=== PATIENT | female | born 1965 | race Caucasian/White ===

== ENCOUNTER 2017-03-20 10:00 | Day surgery (SDC) | payer MEDICAID, SELFPAY ==
[2017-03-18 17:40] LABS: Hematocrit 36.2 % (37-47); Hemoglobin 11.6 g/dl (12.0-15.0); Mean Corpuscular Hgb 28.6 pg (27.0-32.0); Mean Corpuscular Volume 89.2 fL (81-99); Mean Platelet Vol. 9.9 fl (6.2-12.0); Platelet Count 290 K/mm3 (150-450); RBC Distribution Width CV 13.4 % (11.6-14.6); RBC Distribution Width SD 43.3 fl (35.1-43.9); Red Blood Count 4.06 M/mm3 (4.2-5.4); White Blood Count 7.6 K/mm3 (4.4-11.0)
[2017-03-18 17:43] LABS: Scan Indicated on CBC? Y/N NO
[2017-03-20] VITALS (22 sets, daily range): BP systolic 102–134; BP diastolic 50–95; PULSE 18–107; RESP 12–21; TEMP 36.1–37.3; O2SAT 88–100; BMI 23.3
[2017-03-20 10:17] LABS: Internal QC Validated? YES +Cl - CLEAR BKGD; Pregnancy, Urine Negative Negative
--- NOTE | 2017-03-20 11:20 | EMB_PTH ---
PATIENT: NAYANA LOREDO [place] [facility] [place][id number] AGE/SX: 51/F ROOM: RE03/20/[address]: Dr. Nereida Jones, MDDOB: 1965 BED: DIS: 03/20/2017 SPEC #: [id number] RECD: 03/21/17 09:23 STATUS: CARI VICKY #: [id number] BAUDILIO: 03/20/17 11:[address]: Nereida Jones DEPT: SURGICAL PATHOLOGY RECD BY: Kwabena Hugo ENTERED: 03/21/17 11:13 SP TYPE: ENDOM BX/C EDIN DR: Dr. Jose G Em, DO Tissues: Endometrium, NOS Procedures: Surgery Specimen Level IV HEADER OPERATION: Hysteroscopy, D & C, Jimmy Clear PRE-OP DIAGNOSIS: Endometrial fluid and endometrial polyp TISSUE SUBMITTED: Endometrial curettings MICROSCOPIC DIAGNOSIS Endometrium, curettings: Proliferative endometrium. Mild chronic endometritis. Strips of benign superficial endocervix and ectocervix. AM:carl 03/24/17 MICROSCOPIC DESCRIPTION Slides are reviewed. GROSS DESCRIPTION Received in fixative is one container labeled with the patient's name and designated endometrial curettings. The specimen consists of multiple fragments of day mucoid soft tissue mixed with hemorrhagic soft tissue that in aggregate measure 3 x 0.5 x 0.3 cm. The entire specimen is submitted in one cassette. / SJ:carl 03/21/17 TC:3 CPT: 38141
--- NOTE | 2017-03-20 12:00 | OP.PCM_ITS ---
Operative Report Date of Procedure: 03/20/17 Surgeon: Dr. Nereida Cabrera-Patel Consulting Solution Director: Loree DORSEY student Pre op Diagnosis: Endometrial Fluid, Endometrial Polyp Post OP Diagnosis: Stenotic Cervix, Endocervical fluid, Possible EM polyp Surgery Performed: Hysteroscopy, D&C using TRUCLEAR Findings: Uterus retroverted, sounded to approximately 7cm. The cervical os was stenotic- as soon as it was perforated large amt of clear gel like fluid was expelled. No definitve polyp noted. EMC obtained used true clear Complications: none EBL: 5cc Fluids: 800cc LR Fluid Decifit: 40 cc Anesthesia: general with LMA IMplanatable devices: none Operative Note: After informed consent was obtained patient was taken to OR and placed in supine position. Anesthesia was given. patient was placed in yellow fin stirrups she was prepped and draped in normal sterile fashion. bladder was drained with straight catheter with approximately 40cc of clear yellow urine expelled. Exam under anesthesia reviewed normal sized uterus with no adnexal masses. Weighted speculum placed in posterior fornix of vaginal, single tooth tenaculum was used to gently grasped anterior lip of cervix. cervix noted to be stenotic- small dilator used to perforate cervical os- at this time large amout of clear gel like fluid was expelled. Uterus was sounded to 7cm. Cervix was then gently dilated in an incremental fashion. Was adequate dilation was achieved the hysteroscope was inserted using Normal saline as the distention medium. Upon hysteroscopy there were no gross abnormalities, no definitive polypoid tissue noted. At this time the incisor truclear blade was opened and used for the Endometrial curetting sample. The tissue was then sent to pathology for examination. Uterine cavity intact, no complications. At this time procedure was deemed complete and successful. Tenaculum removed, speculum removed. Good hemostasis appreciated. Vaginal sweep was negative. Instrument and lap count correct x 2. I anticipate normal postoperative course.
--- NOTE | 2017-03-20 12:00 | PCM.DC.D&C ---
Discharge Diet: No Restrictions Discharge Activity: Return to Normal Activity, May Shower, May Take a Tub Bath - in 2 weeks. Allergies/Adverse Reactions: Allergies latex Allergy (Verified 03/13/17 15:26) Rash Penicillins Allergy (Verified 03/13/17 15:26) Rash codeine Adverse Reaction (Verified 03/13/17 15:26) Rash Medications to take at Discharge Cyclobenzaprine [Flexeril] 5 mg PO BID PRN 03/10/17 Fluoxetine HCl [Fluoxetine HCl] 40 mg PO DAILY 03/10/17 Fluoxetine [Prozac] 20 mg PO DAILY 03/10/17 Levothyroxine [Synthroid] 100 mcg PO DAILY 03/10/17 Albuterol IH (ProAir) [Proair Hfa (SP)Vent Pts] 1 - 2 puff INHALATION Q4H PRN PRN 03/13/17 Albuterol Inhaler [Ventolin Hfa (SP)] 1 - 2 puff INHALATION Q4H PRN PRN 03/13/17 Fluoxetine [Prozac] 10 mg PO DAILY 03/13/17 Primary Care Physician: Jose G Em DO [Primary Care Provider] - Please Follow Up With: Nereida Jones MD When: 2 weeks as scheduled for post op visit
[2017-03-20] MEDS: Ipratropium/Albuterol Sulfate 3 ML AMPUL.NEB INHALATION (12:22)
--- NOTE | 2017-03-20 12:36 | SUR.PHASEI ---
Addendum entered by Shanda Javed 03/20/17 14:42: PT OFF FLOOR FOR CXR Original Note: Addendum entered by Shanda Javed 03/20/17 14:36: PT'S UPDATED ON PTS STATUS. DURING CONVERSATION WITH PT HER NOTED 1 1/2 AGO SHE WAS TX FOR WALKING PNEUMONIA. PT COMPLETED HER DOSE OF ANTIBIOTICS AND PREDNISONE YESTERDAY. Original Note: UPON ARRIVAL AT 1207 ANESTHESIA AT BEDSIDE Primitivo ROJAS CRNA. ORAL AIRWAY IN. THEN REMOVED AT 1210. PT BEING GIVEN O2 PER PER AMBU BAG. NARCAN X2 DOSES GIVEN AT 1210 & 1215.ALL DONE PER Primitivo MILLER CALLED TO BE AT BESIDE AT 1214. PT BEING DEEP SUCTIONIONED AT 1216 AND ORAL AIRWAY BEING REPLACED PER HIM. ORAL AIRWAY REMOVED PER RESP AT 1225. RESP BEDSIDE AND STARTED BIPAP AT 1232.
--- NOTE | 2017-03-20 14:40 | RAD_ITS ---
STUDY: X-RAY CHEST REASON FOR EXAM: Female, 51 years old. Cough. Shortness of breath. TECHNIQUE: AP and lateral views of the chest. COMPARISON: None. FINDINGS: Focal right middle lobe infiltrate. There is no demonstrated pleural abnormality. Normal size heart. Normal mediastinum and john. Normal visualized pulmonary arteries. Normal visualized aortic arch and descending thoracic aorta. Normal visualized thoracic spine. Normal visualized ribs, clavicles, and shoulders. There is no demonstrated abnormality of the visualized soft tissue structures of the upper abdomen. RAD/Chest PA and Lateral IMPRESSION: Right middle lobe infiltrate. Electronically Signed: Casey Tucker MD at 15:15 EST Tel [phone], Service support ,
== END 2017-03-20 17:00 | disposition home or self-care (01) ==
LOC: SDC 10:01 → AC 10:01
PROVIDERS: Anesthesiology; Family Provider Student in an Organized Health Care Education/Training Program; PCP Student in an Organized Health Care Education/Training Program; Visit Provider Obstetrics & Gynecology
PROC: (CPT 58558; principal; 2017-03-20 11:05)
DX: N71.1 Chronic inflammatory disease of uterus (principal); M79.7 Fibromyalgia; J45.909 Unspecified asthma, uncomplicated; E03.9 Hypothyroidism, unspecified; F32.9 Major depressive disorder, single episode, unspecified
CPT/HCPCS: 00952; 58558; 36415; 71046; 81025; 85027; 88305; 94002; 94640; J7120; J2310; J2405

== ENCOUNTER 2021-03-11 08:14 | Emergency (ER) | payer MEDICAID, SELFPAY ==
[2021-03-11 08:15] VITALS: BP 126/88; PULSE 88; RESP 16; TEMP 36.7; O2SAT 97; BMI 21.4
--- NOTE | 2021-03-11 08:22 | CT_ITS ---
STUDY: CT ABDOMEN AND PELVIS WITHOUT CONTRAST REASON FOR EXAM: Female, 55 years old. right flank pain RADIATION DOSAGE (If Supplied By Facility): CTDIvol = ( 6.09 ) mGy, DLP = ( 273.97 ) mGycm TECHNIQUE: Transaxial images were obtained from the dome of the diaphragm to the symphysis pubis without oral contrast, and without intravenous contrast. Sagittal and coronal images were reconstructed. Individualized dose optimization techniques were used for this CT. COMPARISON: None. FINDINGS: The visualized lung bases are unremarkable. The visualized portions of the heart are within normal limits. Normal liver. Normal gallbladder and extrahepatic biliary system. Normal spleen. Normal pancreas. Normal bilateral adrenal glands. 6 mm obstructing stone at the right ureterovesical junction with moderate ureteral dilatation, hydronephrosis, and perinephric edema. Normal left kidney. Normal visualized stomach. Normal small intestine. Normal colon. The appendix is visualized and appears normal. Normal abdominal aorta. Normal inferior vena cava. Normal retroperitoneum. Normal urinary bladder. Normal abdominal wall. Normal osseous structures. CT/Abdomen/Pelvis without Cont IMPRESSION: 6 mm obstructing stone of the right ureterovesical junction with moderate ureteral dilatation, hydronephrosis, and perinephric edema. Electronically Signed: Darwin Sauceda MD at 9:37 EST Tel , Service support ,
--- NOTE | 2021-03-11 08:23 | EDS_ITS ---
HPI History of Present Illness Chief Complaint: Flank Pain Detail of Chief Complaint: Right-sided flank pain x4 hours Informant: patient Narrative Narrative: Patient presents with right-sided flank pain x4 hours. Patient initially felt like she needed to have a bowel movement and urinate which she did and then the pain became more severe. She has never had pain like this before. She denies urinary symptoms. She denies fever or recent illness. She denies injury to her back. She denies pain rating down her legs. Patient rates the pain a 10 out of 10. Prior similar symptoms: No PFSH PFSH Home Medications cyclobenzaprine 5 mg PO BID PRN 03/10/17 [History Last Taken Unknown] fluoxetine 20 mg PO DAILY 03/10/17 [History Last Taken Unknown] fluoxetine 40 mg PO DAILY 03/10/17 [History Last Taken Unknown] levothyroxine 100 mcg PO DAILY 03/10/17 [History Last Taken Unknown] albuterol sulfate [Proair Hfa (SP)Vent Pts] 1 - 2 puff INHALATION Q4H PRN PRN 03/13/17 [History Last Taken 03/20/17 07:00] albuterol sulfate [Ventolin Hfa (SP)] 1 - 2 puff INHALATION Q4H PRN PRN 03/13/17 [History Last Taken 03/20/17 07:00] fluoxetine 10 mg PO DAILY 03/13/17 [History Last Taken Unknown] hydrocodone-acetaminophen 1 tab PO Q4H PRN PRN 2 Days #10 tablet 03/11/21 [Rx Last Taken Unknown] naproxen 500 mg PO BID #14 tab 03/11/21 [Rx Last Taken Unknown] tamsulosin [Flomax] 0.4 mg PO DAILY #7 cap 03/11/21 [Rx Last Taken Unknown] Allergy/AdvReac Type Severity Reaction Status Date / Time latex Allergy Rash Verified 03/11/21 08:16 Penicillins Allergy Rash Verified 03/11/21 08:16 codeine AdvReac Rash Verified 03/11/21 08:16 Social History Smoking Status: Never smoker ROS ROS ED Constitutional Constitutional ED: Reports systems reviewed and no addt'l complaints, except as documented; Denies body ache(s), change in weight or chills Eyes Eyes: Denies acute decrease in peripheral vision, change in vision, double vision or loss of vision ENT ENT ED: Reports none; Denies ear pain, lip swelling, loss taste/smell, neck pain, otalgia or sore throat Cardiovascular Cardiovascular: Reports none; Denies abdominal pain, chest pain with activity, leg edema, lightheadedness, palpitations, rapid heart rate or syncope Respiratory/Chest Respiratory/Chest: Reports none; Denies change in mental status, dry cough, dyspnea, hemoptysis, shortness of breath at rest or shortness of breath with exertion Gastrointestinal Gastrointestinal: Reports none; Denies abdominal pain, change in stool character, diarrhea, hematemesis, hematochezia, melena, rectal bleeding or vomiting Genitourinary Genitourinary ED: Reports none; Denies abdominal discomfort, anuria, dysuria, genital pain or polyuria Musculoskeletal Musculoskeletal: Reports none and back pain; Denies arthralgias, difficulty walking, extremity pain, muscle weakness or myalgias Integumentary Reports none; Denies abscess or rash Neurologic Neurologic: Reports none; Denies abnormal gait, confusion, focal weakness, frequent falls, headache(s), loss of vision, numbness, paresthesias, radicular pain, vertigo or weakness Psychiatric Psychiatric: Reports systems reviewed and no addt'l complaints, except as documented and none; Denies behavioral changes, confusion, difficulty concentrating, hallucinations, suicidal ideation, tactile hallucinations or visual hallucinations Endocrine Endocrinology: Denies none, cold intolerance, excessive sweating, fatigue or heat intolerance Hematologic/Lymphatic Hematologic/Lymphatic: Reports none; Denies anemia, easy bleeding or easy bruising Allergic/Immunologic Allergic/Immunologic ED: Denies as per HPI, none, lip swelling, mouth swelling, throat swelling, tongue swelling or hives EXAM Physical Exam Const Vital Signs: 03/11/21 08:15 03/11/21 08:51 03/11/21 09:19 Temperature 98.0 F Temperature Source Temporal Pulse Rate 88 Respiratory Rate 16 Respiratory Pattern Normal Blood Pressure 126/88 H 121/69 H Blood Pressure Mean 100 86 Pulse Ox 97 99 Oxygen Delivery Method Room Air Room Air Positive well nourished and well developed General Appearance ED: well developed and NAD HEENT Reports TM's clear and moist mucous membranes normocephalic and atraumatic; Negative for trauma or tenderness Tympanic Membrane ED: Yes TM's clear Eyes PERRL and EOMs intact bilaterally General Eye ED: Negative for pale conjunctiva or scleral icterus Neck no lymphadenopathy, supple and no JVD General: Negative for tenderness Chest Wall inspection of chest normal and palpation of chest normal Chest: Negative for tenderness Resp normal respiratory effort and clear to auscultation bilaterally Effort and Inspection: Negative for respiratory distress or pain with movement Auscultation: Negative for rhonchi, wheezes or diminished lung sounds Cardio regular rate, regular rhythm, S1 normal heart sound, S2 normal heart sound and no murmurs Peripheral Pulses: pulses 2+ throughout GI normal to inspection, nondistended, normoactive bowel sounds, soft to palpation, non-tender, non-distended and no masses Back/Spine no thoracic nor lumbar tenderness Back/Spine Narrative: Patient with CVA tenderness on the right. Extremity normal to inspection General Extremety ED: Negative for edema General Extremity: Negative for edema Neuro oriented x3, CN's II-XII intact bilaterally, no sensory deficits noted and gait normal Sensorium / Orientation: awake, alert, oriented to person, oriented to place and oriented to time Motor Exam: strength 5/5 throughout and strength abnormal Psych mental status grossly normal Skin no rashes or lesions noted and no wounds MDM MDM MDM Narrative Medical decision making narrative: IV line established on arrival. Patient was medicated with morphine and Toradol and Zofran and she had little pain relief with that. Patient was then subsequently given 1 mg of Dilaudid IV and she had good pain relief with that. Patient was noted to have a 6 mm right UVJ stone on CT. Case was discussed with urologist on-call Dr. Jennings who asked that I start patient on Flomax and she would be happy to see patient in consultation. Patient advised to return if worsening pain, fever, vomiting, or condition should worsen anyway. Patient given a prescription for Naprosyn and [place] as well for pain and urine strainers. Lab Data Attestation: I reviewed the patient's lab results. Labs: Laboratory Results - last 24 hr 03/11/21 03/11/21 03/11/21 08:30 08:30 10:15 WBC 12.5 H RBC 4.03 L Hgb 11.9 L Hct 36.2 L MCV 89.8 MCH 29.5 MCHC 32.9 RDW Std Deviation 42.4 RDW Coeff of Jayme 12.8 Plt Count 246 MPV 9.4 Immature Gran % (Auto) 0.400 Neut % (Auto) 86.6 H Lymph % (Auto) 6.3 L [place] % (Auto) 4.4 Eos % (Auto) 1.7 Baso % (Auto) 0.6 Absolute Neuts (auto) 10.8 H Absolute Lymphs (auto) 0.79 L Nucleated RBC % 0 Sodium 136 Potassium 3.8 Chloride 106 Carbon Dioxide 23.0 Anion Gap 7 BUN 22 H Creatinine 1.18 H Estim Creat Clear Calc 47.61 Est GFR (MDRD) Af Amer 62 Est GFR (MDRD) Non-Af 51 L BUN/Creatinine Ratio 18.6 Glucose 126 H Calcium 9.9 Urine Color Yellow Urine Clarity Sl. Cloudy Urine pH 6.0 Ur Specific [place] 1.020 Urine Protein 30 H Urine Glucose (UA) Normal Urine Ketones 5 H Urine Occult Blood 250 H Urine Nitrite Negative Urine Bilirubin Negative Urine Urobilinogen Normal Ur Leukocyte Esterase 25 H Urine RBC 25-50 SEEN Urine WBC 0-5 SEEN Ur Squamous Epith Cells 0 SEEN Urine Bacteria RARE Urine Mucus 3+ Radiography Chest X-Ray - ED: 1 View Diagnostic Testing: Clinical Impression(s) from Imaging Studies Abdomen/Pelvis CT 03/11/21 08:22 IMPRESSION: 6 mm obstructing stone of the right ureterovesical junction with moderate ureteral dilatation, hydronephrosis, and perinephric edema. Electronically Signed: Darwin Sauceda MD at 9:37 EST Tel , Service support , Discharge Plan Triage Chief Complaint: Flank Pain ED Provider: Mariama Martinez Dx/Rx/DC Orders Clinical Impression: Urolithiasis Instructions: ED Kidney Stone w/ Colic Prescriptions: New hydrocodone-acetaminophen [hydrocodone-acetaminophen] 1 TABLET tablet 1 tab PO Q4H PRN PRN (Reason: Pain) 2 Days Qty: 10 RF: 0 naproxen 500 MG tablet 500 mg PO BID Qty: 14 RF: 0 tamsulosin [Flomax] 0.4 mg capsule 0.4 mg PO DAILY Qty: 7 RF: 0 No Action fluoxetine 10 MG capsule 10 mg PO DAILY RF: 0 albuterol sulfate [ProAir HFA] 1 PUFF inhaler 1 - 2 puff inhalation Q4H PRN PRN (Reason: Asthma) RF: 0 albuterol sulfate [Ventolin HFA] 1 INHALER inhaler 1 - 2 puff inhalation Q4H PRN PRN (Reason: Asthma) RF: 0 fluoxetine 40 MG capsule 40 mg PO DAILY RF: 0 cyclobenzaprine 10 MG tablet 5 mg PO BID PRN (Reason: Muscle Spasm) RF: 0 levothyroxine 100 MCG tablet 100 mcg PO DAILY RF: 0 fluoxetine 20 MG capsule 20 mg PO DAILY RF: 0 Primary Care Provider: Jose G Em Referrals: Neeta Jennings MD [STAFF PHYSICIAN] - 3-5 Days Jose G Em DO [Primary Care Provider] - Disposition Disposition: Home, Self Care
[2021-03-11] MEDS: Ketorolac 15 MG/ML Vial IV (08:39)
[2021-03-11] MEDS: Ondansetron 4 MG/2 ML Vial IV (08:39)
[2021-03-11] MEDS: Morphine 4 MG/ML Syringe IV (08:40)
[2021-03-11 08:42] LABS: Absolute Lymphocyte Count 0.79 X10^3/uL (0.83-4.51); Absolute Neutrophil Count 10.8 X10^3/uL (2.0-7.7); Basophil# 0.07 X10^3/uL; Basophil% 0.6 % (0-1); Eosinophil# 0.21 X10^3/uL; Eosinophils% 1.7 % (0-5); Hematocrit 36.2 % (37-47); Hemoglobin 11.9 g/dL (12.0-15.0); Lymphocyte # 0.79 X10^3/ul (0.83-4.51); Lymphocyte % 6.3 % (19-41); Mean Corp Hgb Conc 32.9 g/dL (32-36); Mean Corpuscular Hgb 29.5 pg (27.0-32.0); Mean Corpuscular Volume 89.8 fL (81-99); Mean Platelet Vol. 9.4 fl (6.2-12.0); Monocyte# 0.55 X10^3/uL; Monocyte% 4.4 % (0-10); NRBC Flagged by Analyzer 0 % (0-5); Neutrophil # 10.79 X10^3/uL (2.7-7.7); Neutrophil % 86.6 % (47-70); Platelet Count 246 K/mm3 (150-450); RBC Distribution Width CV 12.8 % (11.6-14.6); RBC Distribution Width SD 42.4 fl (35.1-43.9); Red Blood Count 4.03 M/mm3 (4.2-5.4); White Blood Count 12.5 K/mm3 (4.4-11.0)
[2021-03-11] MEDS: 0.9% Normal Saline 1,000 ML 150 ML IV (08:43)
[2021-03-11 08:51] LABS: Anion Gap 7 (5-15); BUN 22 mg/dL (7-18); BUN/Creat Ratio 18.6 RATIO (10-20); Calcium,Total 9.9 mg/dL (8.5-10.1); Chloride 106 mmol/L (98-107); Creatinine, Serum 1.18 mg/dL (0.55-1.02); EST Glomerular Filtration Rate 51 mL/min (>60); Est Glom Filt Rate - Afr Amer 62 mL/min (>60); Estimated Creatinine Clearance 47.61 ml/min; Glucose 126 mg/dL (74-106); Potassium 3.8 mmol/L (3.5-5.1); Sodium Level 136 mmol/L (136-145)
[2021-03-11] MEDS: HYDROmorphone 1 MG/ML Syringe IV (09:15)
[2021-03-11 09:19] VITALS: BP 121/69; O2SAT 99
[2021-03-11 10:23] LABS: Squamous Epithelial Cells - UA 0 SEEN /hpf (5-10)
[2021-03-11 10:25] LABS: Color, Urine Yellow (Yellow); Glucose, Dipstick Normal (Normal); Ketone-Dipstick 5 mg/dl (Negative); Leukocyte Esterase-Dipstick 25 /ul (Negative); Nitrite-Dipstick Negative (Negative); Occult Blood-Urine 250 /ul (Negative); Protein-Dipstick 30 mg/dl (Negative); Urine Bilirubin Dipstick Negative (Negative); Urine Clarity Sl. Cloudy (Clear); Urine Urobilinogen Normal (Normal)
[2021-03-11 10:31] LABS: Bacteria RARE /hpf (None Seen); Mucous, Urine 3+ /hpf (<or=2+); Red Blood Cells-Urine 25-50 SEEN /hpf (0-5); White Blood Cells 0-5 SEEN /hpf (0-5)
[2021-03-11] MEDS: Tamsulosin HCl 0.4 MG Capsule PO (10:33)
[2021-03-11 11:33] VITALS: BP 124/86; PULSE 86; RESP 16; TEMP 36.3; O2SAT 98
== END 2021-03-11 11:38 | disposition home or self-care (01) ==
PROVIDERS: Emergency Provider Emergency Medicine; PCP Student in an Organized Health Care Education/Training Program; Visit Provider Emergency Medicine
DX: N20.9 Urinary calculus, unspecified (principal)
CPT/HCPCS: 74176; 80048; 81001; 85025; 96374; 96375; 99285; J7030; A4216; J2405

== ENCOUNTER 2021-04-04 21:17 | Inpatient (IN) | payer MEDICAID, SELFPAY ==
[2021-04-04 21:18] VITALS: BP 116/72; PULSE 110; RESP 18; TEMP 36.6; O2SAT 92; BMI 22.3
--- NOTE | 2021-04-04 21:21 | RAD_ITS ---
STUDY: X-RAY CHEST REASON FOR EXAM: Female, 55 years old. Shortness of breath. Seen by PCP today for ear infection nasal congestion. Increased difficulty breathing tonight. TECHNIQUE: Single AP portable view of the chest. COMPARISON: 03/20/2017. FINDINGS: There is an improved inspiratory effort. There is no infiltrate or mass within the lungs. There is no demonstrated pleural abnormality. Normal size heart. Normal mediastinum and john. Normal visualized pulmonary arteries. Normal visualized aortic arch and descending thoracic aorta. Normal visualized thoracic spine. Normal visualized ribs, clavicles, and shoulders. There is no demonstrated abnormality of the visualized soft tissue structures of the upper abdomen. RAD/Chest 1 View IMPRESSION: No acute cardiopulmonary disease. Electronically Signed: Quang Lowry DO at 21:41 EST ,
--- NOTE | 2021-04-04 21:45 | EKG12_ITS ---
Test Reason : SOB Blood Pressure : / mmHG Vent. Rate : 104 BPM Atrial Rate : 104 BPM P-R Int : 160 ms QRS Dur : 078 ms QT Int : 380 ms P-R-T Axes : 080 072 068 degrees QTc Int : 499 ms Sinus tachycardia Otherwise normal ECG Confirmed by DERREK AMADOR, SAM ([id number]), science editor SOLE CARDENAS ([id number]) on 04/05/2021 10:41:54 A M Referred By: ANNALISA Confirmed By:MENDEL ANGLIN MD
[2021-04-04 22:02] VITALS: O2SAT 95
--- NOTE | 2021-04-04 22:03 | ED.RN ---
PT REFUSING TO GET COVID TESTED AT THIS TIME. WAITNG FOR DR TO GO INTO ROOM
[2021-04-04 22:07] LABS: Absolute Lymphocyte Count 0.38 X10^3/uL (0.83-4.51); Absolute Neutrophil Count 9.7 X10^3/uL (2.0-7.7); Basophil# 0.03 X10^3/uL; Basophil% 0.3 % (0-1); Hematocrit 36.4 % (37-47); Lymphocyte # 0.38 X10^3/ul (0.83-4.51); Lymphocyte % 3.6 % (19-41); Mean Corpuscular Hgb 30.1 pg (27.0-32.0); Mean Corpuscular Volume 91.2 fL (81-99); Mean Platelet Vol. 9.7 fl (6.2-12.0); Monocyte# 0.42 X10^3/uL; NRBC Flagged by Analyzer 0 % (0-5); Neutrophil # 9.66 X10^3/uL (2.7-7.7); Neutrophil % 91.8 % (47-70); POSITIVE DIFFERENTIAL YES; Platelet Count 244 K/mm3 (150-450); RBC Distribution Width SD 43.7 fl (35.1-43.9); Red Blood Count 3.99 M/mm3 (4.2-5.4); White Blood Count 10.5 K/mm3 (4.4-11.0)
[2021-04-04 22:09] LABS: Differential Indicated SCAN CRITERIA MET
[2021-04-04] MEDS: MethylPREDNISolone 125 MG/2 ML Vial IV (22:27)
[2021-04-04 22:30] LABS: Anion Gap 9 (5-15); BUN 18 mg/dL (7-18); BUN/Creat Ratio 19.6 RATIO (10-20); Calcium,Total 9.6 mg/dL (8.5-10.1); Chloride 107 mmol/L (98-107); Creatinine, Serum 0.92 mg/dL (0.55-1.02); EST Glomerular Filtration Rate 68 mL/min (>60); Est Glom Filt Rate - Afr Amer 82 mL/min (>60); Estimated Creatinine Clearance 61.07 ml/min; Glucose 125 mg/dL (74-106); Sodium Level 139 mmol/L (136-145)
--- NOTE | 2021-04-04 22:38 | EX.ED.DYSGE1 ---
HPI History of Present Illness Chief Complaint: Shortness of Breath Narrative Narrative: Patient is a 55-year-old female with past medical history of asthma. She denies any history of smoking or vaping and denies any need for supplemental oxygen. She states she has had approximately 3 days of increasing nasal congestion sore throat and cough. She states that she has had mild increase shortness of breath during this time as well. She reports she went to her family doctor today because of this and was diagnosed with a sinus and ear infection and started on antibiotics and steroids. She states that she took her first doses of these but throughout the day felt increasing shortness of breath and therefore comes to the hospital for evaluation [facility] Medical History Asthma Home Medications cyclobenzaprine 5 mg PO BID PRN 03/10/17 [History Last Taken Unknown] fluoxetine 20 mg PO DAILY 03/10/17 [History Last Taken Unknown] fluoxetine 40 mg PO DAILY 03/10/17 [History Last Taken Unknown] levothyroxine 100 mcg PO DAILY 03/10/17 [History Last Taken Unknown] albuterol sulfate [Proair Hfa (SP)Vent Pts] 1 - 2 puff INHALATION Q4H PRN PRN 03/13/17 [History Last Taken 03/20/17 07:00] albuterol sulfate [Ventolin Hfa (SP)] 1 - 2 puff INHALATION Q4H PRN PRN 03/13/17 [History Last Taken 03/20/17 07:00] fluoxetine 10 mg PO DAILY 03/13/17 [History Last Taken Unknown] hydrocodone-acetaminophen 1 tab PO Q4H PRN PRN 2 Days #10 tablet 03/11/21 [Rx Last Taken Unknown] naproxen 500 mg PO BID #14 tab 03/11/21 [Rx Last Taken Unknown] tamsulosin [Flomax] 0.4 mg PO DAILY #7 cap 03/11/21 [Rx Last Taken Unknown] albuterol sulfate 2.5 mg INHALATION Q4H PRN PRN #90 vial 04/04/21 [Rx Last Taken Unknown] azelastine 2 spray INTRANASAL BID #30 ml 04/04/21 [Rx Last Taken Unknown] ipratropium-albuterol 3 ml INHALATION 4X/DAY PRN PRN #180 ml 04/04/21 [Rx Last Taken Unknown] Allergy/AdvReac Type Severity Reaction Status Date / Time latex Allergy Rash Verified 04/04/21 21:21 Penicillins Allergy Rash Verified 04/04/21 21:21 codeine AdvReac Rash Verified 04/04/21 21:21 Social History Smoking Status: Never smoker ROS ROS ED Constitutional Constitutional ED: Denies chills or fever(s) ENT ENT ED: Reports ear pain, rhinorrhea and sore throat Cardiovascular Cardiovascular: Denies chest pain Respiratory/Chest Respiratory/Chest: Reports cough and dyspnea Gastrointestinal Gastrointestinal: Denies abdominal pain, diarrhea, nausea or vomiting Genitourinary Genitourinary ED: Denies dysuria Musculoskeletal Musculoskeletal: Denies myalgias Integumentary Denies rash Neurologic Neurologic: Denies headache(s) Hematologic/Lymphatic Hematologic/Lymphatic: Denies easy bleeding or easy bruising EXAM Physical Exam Const Vital Signs: 04/04/21 21:18 04/04/21 22:02 04/04/21 22:06 Temperature 97.9 F Temperature Source Temporal Pulse Rate 110 H Respiratory Rate 18 Respiratory Effort Short of Breath Respiratory Pattern Blood Pressure 116/72 Blood Pressure Mean 86 Pulse Ox 92 95 Oxygen Delivery Method Room Air Room Air 04/04/21 22:52 Temperature Temperature Source Pulse Rate 110 H Respiratory Rate 19 H Respiratory Effort Respiratory Pattern Tachypnea Blood Pressure Blood Pressure Mean Pulse Ox 96 Oxygen Delivery Method Room Air Positive well nourished and well developed General Appearance ED: well developed HEENT Reports moist mucous membranes HEENT Narrative: Cobblestoning the posterior pharynx consistent with sinus drainage but no airway edema or compromise Eyes PERRL and EOMs intact bilaterally Neck supple and no JVD Neck Narrative: Positive anterior cervical lymphadenopathy noted Resp Resp Narrative: Patient is in mild respiratory distress with slight tachypnea and accessory muscle use. Breath sounds are diminished throughout with diffuse inspiratory and expiratory wheezes Cardio regular rhythm Rate: tachycardic and other Other Details: Slightly tachycardic rate with regular rhythm radial pulses are +2-4 bilaterally are equal and symmetric GI normal to inspection, nondistended, normoactive bowel sounds, non-tender, non-distended and no masses Auscultation: normoactive bowel sounds Palpation: soft Extremity normal to inspection Extremity Narrative: No asymmetric edema no pitting edema negative Homans' sign bilaterally Neuro oriented x3 and CN's II-XII intact bilaterally Sensorium / Orientation: alert Motor Exam: strength 5/5 throughout Psych mental status grossly normal Skin no rashes or lesions noted MDM MDM MDM Narrative Medical decision making narrative: Patient presented to the ER slightly tachycardic but reported doing a breathing treatment recently prior to arrival. She has a past medical history of asthma but no need for supplemental oxygen and denies any smoking or vaping history. She also states she recently saw her family doctor and is currently on Omnicef and Medrol Dosepak. At this time her exam is consistent with asthmatic bronchitis and therefore elected perform basic laboratory studies EKG and chest x-ray. Labs revealed no clinically significant findings EKG was just mildly sinus tachycardia and x-ray revealed no acute lung pathology. Patient was given Solu-Medrol as well as breathing treatments and on reevaluation had improvement in her work of breathing and breath sounds. At this time she is not requiring supplemental oxygen and her pulse ox remains above 90% and therefore she can be discharged on symptomatic medications Lab Data Attestation: I reviewed the patient's lab results. Labs: Laboratory Results - last 24 hr 04/04/21 04/04/21 22:01 22:01 WBC 10.5 RBC 3.99 L Hgb 12.0 Hct 36.4 L MCV 91.2 MCH 30.1 MCHC 33.0 RDW Std Deviation 43.7 RDW Coeff of Jayme 13.0 Plt Count 244 MPV 9.7 Immature Gran % (Auto) 0.300 Neut % (Auto) 91.8 H Lymph % (Auto) 3.6 L Stewart % (Auto) 4.0 Eos % (Auto) 0.0 Baso % (Auto) 0.3 Absolute Neuts (auto) 9.7 H Absolute Lymphs (auto) 0.38 L Nucleated RBC % 0 Sodium 139 Potassium 4.0 Chloride 107 Carbon Dioxide 23.0 Anion Gap 9 BUN 18 Creatinine 0.92 Estim Creat Clear Calc 61.07 Est GFR (MDRD) Af Amer 82 Est GFR (MDRD) Non-Af 68 BUN/Creatinine Ratio 19.6 Glucose 125 H Calcium 9.6 Radiography Diagnostic Testing: Clinical Impression(s) from Imaging Studies Chest X-Ray 04/04/21 21:21 IMPRESSION: No acute cardiopulmonary disease. Electronically Signed: Quang Lowry DO at 21:41 EST Reading Location ID and State: [address] [place] [address] Tel [phone], Service support , Discharge Plan Triage Chief Complaint: Shortness of Breath ED Provider: Raul Lima Dx/Rx/DC Orders Clinical Impression: Acute asthmatic bronchitis Instructions: ED Bronchitis with Wheezing (Adult) Prescriptions: New ipratropium-albuterol 0.5 mg-3 mg(2.5 mg base)/3 mL solution for nebulization 3 ml inhalation 4X/DAY PRN PRN (Reason: shortness of breath or wheezing) Qty: 180 RF: 0 albuterol sulfate 2.5 mg /3 mL (0.083 %) solution for nebulization 2.5 mg inhalation Q4H PRN PRN (Reason: shortness of breath or wheezing) Qty: 90 RF: 0 azelastine 137 mcg (0.1 %) aerosol,spray 2 spray intranasal BID Qty: 30 RF: 0 No Action fluoxetine 10 MG capsule 10 mg PO DAILY RF: 0 albuterol sulfate [ProAir HFA] 1 PUFF inhaler 1 - 2 puff inhalation Q4H PRN PRN (Reason: Asthma) RF: 0 albuterol sulfate [Ventolin HFA] 1 INHALER inhaler 1 - 2 puff inhalation Q4H PRN PRN (Reason: Asthma) RF: 0 fluoxetine 40 MG capsule 40 mg PO DAILY RF: 0 cyclobenzaprine 10 MG tablet 5 mg PO BID PRN (Reason: Muscle Spasm) RF: 0 levothyroxine 100 MCG tablet 100 mcg PO DAILY RF: 0 fluoxetine 20 MG capsule 20 mg PO DAILY RF: 0 hydrocodone-acetaminophen [hydrocodone-acetaminophen] 1 TABLET tablet 1 tab PO Q4H PRN PRN (Reason: Pain) 2 Days Qty: 10 RF: 0 naproxen 500 MG tablet 500 mg PO BID Qty: 14 RF: 0 tamsulosin [Flomax] 0.4 mg capsule 0.4 mg PO DAILY Qty: 7 RF: 0 Primary Care Provider: Jose G Em Referrals: Jose G Em DO [Primary Care Provider] - Activity Restrictions/Additional Instructions: Please continue to take your antibiotic and steroids which were prescribed by your family doctor today and return to the ER should you have any further concerns Disposition Disposition: Home, Self Care
--- NOTE | 2021-04-04 22:40 | ED.RN ---
PT CALLED OUT STATING SHE CANNOT BREATH. EXPLAINED TO PT THAT WE ARE WAITING FOR RESPIRATORY TO DO BREATHING TX. PT REMAINS 94% ON RA, RESPIRATORY NOTIFIED AGAIN OF BREATHING TX- HEADED IN THERE NEXT. WILL CONTINUE TO MONITOR.
[2021-04-04] MEDS: Albuterol 2.5 MG/3 ML VIAL.NEB. INHALATION (22:50)
[2021-04-04] MEDS: Ipratropium/Albuterol Sulfate 3 ML AMPUL.NEB INHALATION (22:50)
[2021-04-04 22:52] VITALS: PULSE 110; RESP 19; O2SAT 96
[2021-04-04 23:14] LABS: Differential Comment SCANNED
[2021-04-04 23:23] VITALS: PULSE 91; O2SAT 93
[2021-04-05] VITALS (17 sets, daily range): BP systolic 103–156; BP diastolic 56–118; PULSE 97–123; RESP 12–25; TEMP 35.6–36.8; O2SAT 93–100; BMI 21.1
--- NOTE | 2021-04-05 01:02 | CT_ITS ---
HISTORY: dyspnea EXAMINATION: CTA Chest W/ Contrast Injection (and W/O Contrast Images if performed) TECHNIQUE: Helically acquired images were obtained of the chest following IV contrast as per pulmonary angiogram protocol with MIP and MPR reconstructions. A radiation dose optimization technique was used for this scan. IV Contrast dosage and agent: 75mL [id number] COMPARISON: None FINDINGS: LUNGS, PLEURA AND LARGE AIRWAYS: Multifocal patchy bilateral groundglass alveolar opacities. Mild peribronchial thickening also noted. No discrete pulmonary mass. No pleural effusion or pleural thickening. No pneumothorax. PULMONARY ARTERIES: No pulmonary arterial filling defects identified. AORTA AND GREAT VESSELS: No thoracic aortic aneurysm or dissection. Great vessels are patent. HEART AND PERICARDIUM: Heart size within normal limits. No significant pericardial effusion. MEDIASTINUM AND KARLEE: No pathologically enlarged mediastinal or hilar lymph nodes. Esophagus is unremarkable. THYROID: Unremarkable as visualized. UPPER ABDOMEN: Fatty infiltration of liver. Subcentimeter nodular focus of enhancement within left lobe of liver. BONES: Intact with no suspicious osseous lesion. SOFT TISSUES: No acute findings. CT/CTA Chest W/WO Contrast IMPRESSION: 1. Patchy bilateral groundglass pulmonary infiltrate possibly representing atypical or viral pneumonia. Correlate with COVID status. 2. Mild peribronchial thickening also present, suggesting superimposed bronchitis. 3. No pulmonary embolus identified. 4. Hepatic steatosis with indeterminate subcentimeter enhancing lesion within left lobe of liver. Favor small benign hemangioma. Hepatic neoplasm not entirely excluded. Consider dedicated nonemergent follow-up 3-phase liver CT or MRI in 3-6 months. Individualized dose optimization techniques were used for this CT. at 0156 Reported and signed by: Phil Harman MD Electronically Signed: Phil Harman MD at 1:55 EST ,
--- NOTE | 2021-04-05 01:02 | ED.RN ---
patient returning via ambulane. Duoneb given enroute and till tight
--- NOTE | 2021-04-05 01:17 | EKG12_ITS ---
Test Reason : SOB Blood Pressure : / mmHG Vent. Rate : 104 BPM Atrial Rate : 104 BPM P-R Int : 162 ms QRS Dur : 084 ms QT Int : 382 ms P-R-T Axes : 081 076 077 degrees QTc Int : 502 ms Sinus tachycardia Otherwise normal ECG Confirmed by DERREK AMADOR, SAM ([id number]), commissioning editor SOLE CARDENAS ([id number]) on 04/05/2021 10:42:11 A M Referred By: ANNALISA Confirmed By:MENDEL ANGLIN MD
[2021-04-05 01:24] LABS: Partial Thromboplast Time 28.7 Seconds (24.1-36.2); Prothrombin Time (Protime)PT. 12.6 SECONDS (11.7-14.9)
[2021-04-05] MEDS: LORazepam 2 MG/ML Syringe 1 MG IV (01:41)
[2021-04-05] MEDS: Ipratropium/Albuterol Sulfate 3 ML AMPUL.NEB INHALATION ×5 (01:45→19:00)
[2021-04-05 01:47] LABS: Magnesium 1.8 mg/dL (1.6-2.6); Thyroid Stim Hormone (TSH) 0.17 uIU/mL (0.358-3.74); Troponin-I HS 123 pg/mL (3.0-54.0)
[2021-04-05 01:51] LABS: Absolute Lymphocyte Count 0.25 X10^3/uL (0.83-4.51); Absolute Neutrophil Count 9.8 X10^3/uL (2.0-7.7); Basophil# 0.02 X10^3/uL; Basophil% 0.2 % (0-1); Hematocrit 33.8 % (37-47); Hemoglobin 11.1 g/dL (12.0-15.0); Lymphocyte # 0.25 X10^3/ul (0.83-4.51); Lymphocyte % 2.4 % (19-41); Mean Corp Hgb Conc 32.8 g/dL (32-36); Mean Corpuscular Hgb 30.2 pg (27.0-32.0); Mean Corpuscular Volume 92.1 fL (81-99); Mean Platelet Vol. 9.8 fl (6.2-12.0); Monocyte# 0.19 X10^3/uL; Monocyte% 1.9 % (0-10); NRBC Flagged by Analyzer 0 % (0-5); Neutrophil # 9.77 X10^3/uL (2.7-7.7); Neutrophil % 95.1 % (47-70); POSITIVE DIFFERENTIAL YES; Platelet Count 231 K/mm3 (150-450); RBC Distribution Width CV 13.2 % (11.6-14.6); RBC Distribution Width SD 44.3 fl (35.1-43.9); Red Blood Count 3.67 M/mm3 (4.2-5.4); White Blood Count 10.3 K/mm3 (4.4-11.0)
[2021-04-05 01:52] LABS: Differential Indicated SCAN CRITERIA MET
[2021-04-05 02:10] LABS: Differential Comment SCANNED
[2021-04-05] MEDS: Ceftriaxone 1 GM/50 ML BAG IV (03:47)
[2021-04-05 03:54] LABS: Troponin-I HS 272 pg/mL (3.0-54.0)
[2021-04-05] MEDS: Aspirin 325 MG Tablet PO (04:39)
--- NOTE | 2021-04-05 04:53 | EDS_ITS ---
HPI History of Present Illness Chief Complaint: Shortness of Breath Narrative Narrative: Patient was seen earlier this evening secondary to congestion drainage cough and increased shortness of breath. At that time EKG was just mildly sinus tach at 105 and her x-ray revealed no infection and her pulse ox was in the mid 90s. She refused a Covid swab at that time and as her constellation of symptoms appear more viral in nature without obvious infiltrate and she had no respiratory distress she was discharged. Patient states she was at home doing a breathing treatment before bed when she felt lightheaded and had a near syncopal event. states that she got modi and ashen at this time and with her worsening symptoms EMS was called to bring her back for evaluation. EMS states when they arrived her pulse ox was in the mid 90s [facility] Medical History Asthma Home Medications cyclobenzaprine 5 mg PO BID PRN 03/10/17 [History Last Taken Unknown] fluoxetine 20 mg PO DAILY 03/10/17 [History Last Taken Unknown] fluoxetine 40 mg PO DAILY 03/10/17 [History Last Taken Unknown] levothyroxine 100 mcg PO DAILY 03/10/17 [History Last Taken Unknown] albuterol sulfate [Proair Hfa (SP)Vent Pts] 1 - 2 puff INHALATION Q4H PRN PRN 03/13/17 [History Last Taken 03/20/17 07:00] albuterol sulfate [Ventolin Hfa (SP)] 1 - 2 puff INHALATION Q4H PRN PRN 03/13/17 [History Last Taken 03/20/17 07:00] fluoxetine 10 mg PO DAILY 03/13/17 [History Last Taken Unknown] hydrocodone-acetaminophen 1 tab PO Q4H PRN PRN 2 Days #10 tablet 03/11/21 [Rx Last Taken Unknown] naproxen 500 mg PO BID #14 tab 03/11/21 [Rx Last Taken Unknown] tamsulosin [Flomax] 0.4 mg PO DAILY #7 cap 03/11/21 [Rx Last Taken Unknown] albuterol sulfate 2.5 mg INHALATION Q4H PRN PRN #90 vial 04/04/21 [Rx Last Taken Unknown] azelastine 2 spray INTRANASAL BID #30 ml 04/04/21 [Rx Last Taken Unknown] ipratropium-albuterol 3 ml INHALATION 4X/DAY PRN PRN #180 ml 04/04/21 [Rx Last Taken Unknown] Allergy/AdvReac Type Severity Reaction Status Date / Time latex Allergy Rash Verified 04/04/21 21:21 Penicillins Allergy Rash Verified 04/04/21 21:21 codeine AdvReac Rash Verified 04/04/21 21:21 Social History Smoking Status: Never smoker ROS ROS ED Constitutional Constitutional ED: Denies chills or fever(s) ENT ENT ED: Reports rhinorrhea and sore throat Cardiovascular Cardiovascular: Denies chest pain Respiratory/Chest Respiratory/Chest: Reports cough and dyspnea Gastrointestinal Gastrointestinal: Denies abdominal pain, diarrhea, nausea or vomiting Genitourinary Genitourinary ED: Denies dysuria Musculoskeletal Musculoskeletal: Reports myalgias Integumentary Denies rash Neurologic Neurologic: Denies headache(s) Hematologic/Lymphatic Hematologic/Lymphatic: Denies easy bleeding or easy bruising EXAM Physical Exam Const Vital Signs: 04/04/21 21:18 04/04/21 22:02 04/04/21 22:06 Temperature 97.9 F Temperature Source Temporal Pulse Rate 110 H Respiratory Rate 18 Respiratory Effort Short of Breath Respiratory Pattern Blood Pressure 116/72 Blood Pressure Mean 86 Pulse Ox 92 95 Oxygen Delivery Method Room Air Room Air 04/04/21 22:52 04/04/21 23:23 04/05/21 01:03 Temperature 96.0 F L Temperature Source Temporal Pulse Rate 110 H 91 112 H Respiratory Rate 19 H 25 H Respiratory Effort Respiratory Pattern Tachypnea Blood Pressure 156/118 H Blood Pressure Mean 130 Pulse Ox 96 93 100 Oxygen Delivery Method Room Air Room Air 04/05/21 01:45 04/05/21 05:00 Temperature 97.8 F Temperature Source Temporal Pulse Rate 103 H 107 H Respiratory Rate 20 H 23 H Respiratory Effort Respiratory Pattern Tachypnea Blood Pressure 106/63 Blood Pressure Mean 77 Pulse Ox 96 94 Oxygen Delivery Method Room Air Room Air Positive well nourished and well developed General Appearance ED: well developed HEENT Reports moist mucous membranes HEENT Narrative: Cobblestoning the posterior pharynx consistent with sinus drainage without airway edema or compromise. Nasal mucosa is hyperemic and boggy with enlarged inferior nasal turbinate Eyes PERRL and EOMs intact bilaterally Neck supple and no JVD Neck Narrative: Positive anterior cervical lymphadenopathy noted Resp Resp Narrative: Patient is in mild respiratory distress with slight tachypnea and accessory muscle use. Breath sounds are diminished throughout with diffuse inspiratory and expiratory wheezing. No nasal flaring or retractions noted Cardio regular rhythm Rate: tachycardic and other Other Details: Radial pulses are +2-4 bilaterally are equal and symmetric GI normal to inspection, nondistended, normoactive bowel sounds, non-tender, non- distended and no masses GI Narrative: No voluntary guarding or rigidity no pulsatile mass Auscultation: normoactive bowel sounds Palpation: soft Extremity normal to inspection Extremity Narrative: No asymmetric edema no pitting edema negative Homans' sign bilaterally Neuro oriented x3 and CN's II-XII intact bilaterally Sensorium / Orientation: alert Psych Mood & Affect: anxious Skin no rashes or lesions noted MDM MDM MDM Narrative Medical decision making narrative: Patient returned to the ER slightly tachycardic as she was previously and satting in the mid 90s on room air. However this time she was slightly more tachypnea. With the report of a near syncopal event and worsening symptoms I did elect to perform repeat laboratory studies and this time a CTA based on her report of shortness of breath and tachycardia. CTA revealed no PE but did show groundglass opacities concerning for atypical or viral pneumonia. A rapid Covid swab was obtained as she did agree to at this time and it was negative. Therefore she was started on Rocephin and Zithromax for possible atypical community-acquired pneumonia. I did elect to check a troponin this visit as she reported near syncopal event at home. The value was elevated at 123 initially and her 2-hour delta increased to 272. Because of these changes I discussed the case with cardiology on-call. The patient has never complained of chest pain and her constellation of symptoms are consistent with a viral etiology. Cardiology recommends that patient get a more accurate PCR swab. Therefore that was ordered. If the PCR swab is n egative then patient can be placed on a heparin drip per cardiology recommendation and they will continue to trend the troponins and progressed to further testing such as echo if needed. However at this time with her elevating troponins and persistent shortness of breath she will be kept in the hospital for further care Lab Data Attestation: I reviewed the patient's lab results. Labs: Laboratory Results - last 24 hr 04/04/21 04/04/21 04/05/21 22:01 22:01 01:10 WBC 10.5 RBC 3.99 L Hgb 12.0 Hct 36.4 L MCV 91.2 MCH 30.1 MCHC 33.0 RDW Std Deviation 43.7 RDW Coeff of Jayme 13.0 Plt Count 244 MPV 9.7 Immature Gran % (Auto) 0.300 Neut % (Auto) 91.8 H Lymph % (Auto) 3.6 L Roosevelt % (Auto) 4.0 Eos % (Auto) 0.0 Baso % (Auto) 0.3 Absolute Neuts (auto) 9.7 H Absolute Lymphs (auto) 0.38 L Nucleated RBC % 0 Differential Comment SCANNED PT 12.6 INR 1.0 APTT 28.7 Sodium 139 Potassium 4.0 Chloride 107 Carbon Dioxide 23.0 Anion Gap 9 BUN 18 Creatinine 0.92 Estim Creat Clear Calc 61.07 Est GFR (MDRD) Af Amer 82 Est GFR (MDRD) Non-Af 68 BUN/Creatinine Ratio 19.6 Glucose 125 H Calcium 9.6 Magnesium Troponin I High Sens TSH 04/05/21 04/05/21 04/05/21 01:12 01:45 03:16 WBC 10.3 RBC 3.67 L Hgb 11.1 L Hct 33.8 L MCV 92.1 MCH 30.2 MCHC 32.8 RDW Std Deviation 44.3 H RDW Coeff of Jayme 13.2 Plt Count 231 MPV 9.8 Immature Gran % (Auto) 0.400 Neut % (Auto) 95.1 H Lymph % (Auto) 2.4 L Roosevelt % (Auto) 1.9 Eos % (Auto) 0.0 Baso % (Auto) 0.2 Absolute Neuts (auto) 9.8 H Absolute Lymphs (auto) 0.25 L Nucleated RBC % 0 Differential Comment SCANNED PT INR APTT Sodium Potassium Chloride Carbon Dioxide Anion Gap BUN Creatinine Estim Creat Clear Calc Est GFR (MDRD) Af Amer Est GFR (MDRD) Non-Af BUN/Creatinine Ratio Glucose Calcium Magnesium 1.8 Troponin I High Sens 123 H* 272 H* TSH 0.17 L Radiography Diagnostic Testing: Clinical Impression(s) from Imaging Studies Chest X-Ray 04/04/21 21:21 IMPRESSION: No acute cardiopulmonary disease. Electronically Signed: Quang Lowry DO at 21:41 EST , Chest CTA 04/05/21 01:02 IMPRESSION: 1. Patchy bilateral groundglass pulmonary infiltrate possibly representing atypical or viral pneumonia. Correlate with COVID status. 2. Mild peribronchial thickening also present, suggesting superimposed bronchitis. 3. No pulmonary embolus identified. 4. Hepatic steatosis with indeterminate subcentimeter enhancing lesion within left lobe of liver. Favor small benign hemangioma. Hepatic neoplasm not entirely excluded. Consider dedicated nonemergent follow-up 3-phase liver CT or MRI in 3-6 months. Individualized dose optimization techniques were used for this CT. at 0156 Reported and signed by: Phil Harman MD Electronically Signed: Phil Harman MD at 1:55 EST , Critical Care Time Critical Care Time: Yes Critical care time (excluding procedures): - (Please note critical care time of 33 minutes) Discharge Plan Triage Chief Complaint: Shortness of Breath ED Provider: Raul Lima Dx/Rx/DC Orders Clinical Impression: Non-ST elevated myocardial infarction (non-STEMI), Atypical pneumonia Prescriptions: New ipratropium-albuterol 0.5 mg-3 mg(2.5 mg base)/3 mL solution for nebulization 3 ml inhalation 4X/DAY PRN PRN (Reason: shortness of breath or wheezing) Qty: 180 RF: 0 albuterol sulfate 2.5 mg /3 mL (0.083 %) solution for nebulization 2.5 mg inhalation Q4H PRN PRN (Reason: shortness of breath or wheezing) Qty: 90 RF: 0 azelastine 137 mcg (0.1 %) aerosol,spray 2 spray intranasal BID Qty: 30 RF: 0 No Action fluoxetine 10 MG capsule 10 mg PO DAILY RF: 0 albuterol sulfate [ProAir HFA] 1 PUFF inhaler 1 - 2 puff inhalation Q4H PRN PRN (Reason: Asthma) RF: 0 albuterol sulfate [Ventolin HFA] 1 INHALER inhaler 1 - 2 puff inhalation Q4H PRN PRN (Reason: Asthma) RF: 0 fluoxetine 40 MG capsule 40 mg PO DAILY RF: 0 cyclobenzaprine 10 MG tablet 5 mg PO BID PRN (Reason: Muscle Spasm) RF: 0 levothyroxine 100 MCG tablet 100 mcg PO DAILY RF: 0 fluoxetine 20 MG capsule 20 mg PO DAILY RF: 0 hydrocodone-acetaminophen [hydrocodone-acetaminophen] 1 TABLET tablet 1 tab PO Q4H PRN PRN (Reason: Pain) 2 Days Qty: 10 RF: 0 naproxen 500 MG tablet 500 mg PO BID Qty: 14 RF: 0 tamsulosin [Flomax] 0.4 mg capsule 0.4 mg PO DAILY Qty: 7 RF: 0 Primary Care Provider: Jose G Em Referrals: Jose G Em DO [Primary Care Provider] - Disposition Disposition: Acute Care Hospital [facility] Discharge Date/Time: 04/04/21 23:23
--- NOTE | 2021-04-05 04:57 | ECHOD_ITS ---
Reason For Study: SOB Procedure This was a 2D Doppler, Color Flow transthoracic echocardiogram. The exam was of adequate technical quality. Exam performed portable in patient room. Left Ventricle Normal LV size. Apical false tendon noted. Left ventricular systolic function is normal. The estimated ejection fraction is 70 %. Transmitral doppler flow suggestive of impaired relaxation of left ventricle. No regional wall motion abnormalities noted. Right Ventricle Normal RV size. Normal systolic function. Atria Normal left atrium. Normal right atrium. No doppler evidence for ASD. Mitral Valve There is no mitral annular calcification. Normal mitral valve. Trivial mitral valve insufficiency. Tricuspid Valve Normal tricuspid valve. Trivial tricuspid valve insufficiency. Unable to estimate RV systolic pressure due to insufficient tricuspid regurgitant envelope. Aortic Valve Trisinus/trileaflet aortic valve. Normal aortic valve. Pulmonic Valve The pulmonic valve is not well visualized. Great Vessels Normal sized aortic root. Pericardium/Pleural No pericardial effusion. MMode/2D Measurements & Calculations LVIDd: 4.5 cm IVSd: 0.55 cm Ao root diam: 3.1 cm LVIDs: 3.1 cm LVPWd: 0.65 cm RVDd: 2.7 cm FS: 31.4 % LAV(MOD-bp): 20.6 ml LVAd ap4: 19.8 cm2 LVAd ap2: 21.8 cm2 LAV(MOD-bp) Indexed: 12.7 ml/m2 LVLd ap4: 6.7 cm LVLd ap2: 7.5 cm LAV(MOD-sp2): 16.0 ml EDV(MOD-sp4): 51.0 ml EDV(MOD-sp2): 56.8 ml LAV(MOD-sp4): 22.7 ml EDV(sp4-el): 49.5 ml EDV(sp2-el): 54.0 ml LVAs ap4: 9.5 cm2 LVAs ap2: 12.4 cm2 LVLs ap4: 4.8 cm LVLs ap2: 6.0 cm ESV(MOD-sp4): 16.4 ml ESV(MOD-sp2): 23.8 ml ESV(sp4-el): 15.8 ml ESV(sp2-el): 21.8 ml EF(MOD-sp4): 67.9 % EF(MOD-sp2): 58.1 % EF(sp4-el): 68.1 % SV(MOD-sp4): 34.7 ml SV(MOD-sp2): 33.0 ml SV(sp4-el): 33.7 ml LA dimension(2D): 3.0 cm LA A4 area: 11.3 cm2 RA A4 area: 8.0 cm2 Doppler Measurements & Calculations MV E max johnathan: 64.4 cm/sec Lat Peak E' Johnathan: 14.2 cm/sec Med Peak E' Johnathan: 10.4 cm/sec MV A max johnathan: 81.6 cm/sec E/E' lat: 4.5 E/E' med: 6.2 MV E/A: 0.79 Ao V2 max: 154.4 cm/sec LV V1 max: 102.6 cm/sec Ao max P.5 mmHg LV V1 max P.2 mmHg ECHO/Echo Complete Interpretation Summary Left ventricular systolic function is normal. The estimated ejection fraction is 70 %. Apical false tendon noted. Trivial mitral valve insufficiency. Trivial tricuspid valve insufficiency. Unable to estimate RV systolic pressure due to insufficient tricuspid regurgita nt envelope. Transmitral doppler flow suggestive of impaired relaxation of left ventricle Ordering Physician: Bhargavi Chiang Referring Physician: JAMIA CLEARY Performed By: Estela Childs, RDCS, RVT
--- NOTE | 2021-04-05 05:06 | PCM.HP.STD ---
HPI - General General Date of Admission: 04/05/21 Date of Service: 04/05/21 Chief Complaint: Shortness of breath- 1 day URI - 2 days HPI Narrative NAYANA LOREDO, is a 55 F who presents with the above. Patient has been having upper respiratory ongoing for 2 days. She was seen at the urgent care and diagnosed with sinusitis and ear infection. She was started on antibiotics and steroids. She has not been feeling well, admits to subjective fever and chills, body aches. She denied any loss of smell or taste. She denied any sputum production, admits to dyspnea on exertion, denied any orthopnea or PND. She is unvaccinated against COVID-19 pneumonia. She called her friend who brought her to the emergency department earlier on. Work-up in the ED at that time was unremarkable. Patient had evidence of asthma exacerbation with tachycardia. She however was saturating in the 90s. She did not qualify for oxygen. She refused a Covid test at that time.She was discharged home on breathing treatment. She presented back because she was progressively very short of breath and did not look well. Vitals in the ED showed blood pressure 116/72, heart rate of 110, respiratory rate 18, SPO2 is 92% on room air, temperature 97.9 F. Admitting blood work showed WBC count 10.3, hemoglobin 11.1, platelet count 231, BMP was unremarkable, magnesium 1.8, TSH 0.17, free T4 and free T3 were normal. Troponin was elevated initially at 123, later 272 COVID-19 rapid antigen test was negative, COVID-19 PCR is pending. Chest x-ray was unremarkable. CTA of the chest showed patchy bilateral groundglass opacities, hepatic steatosis with indeterminate enhancing lesion. EKG shows sinus tachycardia. [facility] Medical History Asthma Home Medications cyclobenzaprine 5 mg PO BID PRN 03/10/17 [History Last Taken Unknown] fluoxetine 20 mg PO DAILY 03/10/17 [History Last Taken Unknown] fluoxetine 40 mg PO DAILY 03/10/17 [History Last Taken Unknown] levothyroxine 100 mcg PO DAILY 03/10/17 [History Last Taken Unknown] albuterol sulfate [Proair Hfa (SP)Vent Pts] 1 - 2 puff INHALATION Q4H PRN PRN 03/13/17 [History Last Taken 03/20/17 07:00] albuterol sulfate [Ventolin Hfa (SP)] 1 - 2 puff INHALATION Q4H PRN PRN 03/13/17 [History Last Taken 03/20/17 07:00] fluoxetine 10 mg PO DAILY 03/13/17 [History Last Taken Unknown] hydrocodone-acetaminophen 1 tab PO Q4H PRN PRN 2 Days #10 tablet 03/11/21 [Rx Last Taken Unknown] naproxen 500 mg PO BID #14 tab 03/11/21 [Rx Last Taken Unknown] tamsulosin [Flomax] 0.4 mg PO DAILY #7 cap 03/11/21 [Rx Last Taken Unknown] albuterol sulfate 2.5 mg INHALATION Q4H PRN PRN #90 vial 04/04/21 [Rx Last Taken Unknown] azelastine 2 spray INTRANASAL BID #30 ml 04/04/21 [Rx Last Taken Unknown] ipratropium-albuterol 3 ml INHALATION 4X/DAY PRN PRN #180 ml 04/04/21 [Rx Last Taken Unknown] Allergy/AdvReac Type Severity Reaction Status Date / Time latex Allergy Rash Verified 04/04/21 21:21 Penicillins Allergy Rash Verified 04/04/21 21:21 codeine AdvReac Rash Verified 04/04/21 21:21 Family History (Updated 04/05/21 @ 06:[address] Bhargavi Chiang MD) Father Sudden cardiac Mother No problems noted. Surgical History no surgical history no surgical history Social History (Updated 04/05/21 @ 06:[address] Bhargavi Chiang MD) current occupational status: employed Smoking Status: Never smoker alcohol intake: current alcohol intake frequency: holidays/special occasions only substance use type: does not use ROS ROS Narrative Constitutional: Reports: Malaise, Weakness, Fatigue. Denies: Anorexia, Chills, Fever, Night Sweats, Weight Change Eyes: Denies: Blurred vision, Cataracts, Conjunctivae Inflammation, Pain, Redness, Vision Change HEENT: Admits to sinus drainage, sinus congestion, sore throat denies: Difficulty Hearing, Head Aches, Hearing Changes, Cardiovascular: Denies: Chest Pain, Orthopnea, Palpitations Respiratory: See HPI Gastrointestinal: Denies: Abdominal Pain, Nausea, Vomiting Genitourinary: Denies: Dysuria Musculoskeletal: Denies: Joint Pain, Joint stiffness, Joint swelling, Joint Tenderness Skin: Denies: Rash, Wounds Neurological: Denies: Numbness, Tingling, Focal weakness Vital Signs Vital Signs Vital Signs: 04/04/21 21:18 04/04/21 22:02 04/04/21 22:06 Temperature 97.9 F Temperature Source Temporal Pulse Rate 110 H Respiratory Rate 18 Respiratory Effort Short of Breath Respiratory Pattern Blood Pressure 116/72 Blood Pressure Mean 86 Pulse Ox 92 95 Oxygen Delivery Method Room Air Room Air 04/04/21 22:52 04/04/21 23:23 04/05/21 01:03 Temperature 96.0 F L Temperature Source Temporal Pulse Rate 110 H 91 112 H Respiratory Rate 19 H 25 H Respiratory Effort Respiratory Pattern Tachypnea Blood Pressure 156/118 H Blood Pressure Mean 130 Pulse Ox 96 93 100 Oxygen Delivery Method Room Air Room Air 04/05/21 01:45 04/05/21 05:00 Temperature 97.8 F Temperature Source Temporal Pulse Rate 103 H 107 H Respiratory Rate 20 H 23 H Respiratory Effort Respiratory Pattern Tachypnea Blood Pressure 106/63 Blood Pressure Mean 77 Pulse Ox 96 94 Oxygen Delivery Method Room Air Room Air Weight Weight: 58.967 kg Body Mass Index (BMI) 22.3 Physical Exam Narrative Physical exam: General: Alert, Oriented x3, Cooperative, No apparent distress, appears fatigued HEENT: Atraumatic Oral: Moist Mucosa Neck: Supple Lungs: Diminished to auscultation, wheezes ++ Cardiovascular: HS I+II, regular, no murmurs Abdomen: Bowel Sounds Present, Soft, Non Tender Extremities: No edema Results Lab / Micro Data Result Diagrams: 04/05/21 01:45 04/04/21 22:01 Labs: Laboratory Results - last 24 hr 04/04/21 22:01: WBC 10.5, RBC 3.99 L, Hgb 12.0, Hct 36.4 L, MCV 91.2, MCH 30.1, MCHC 33.0, RDW Std Deviation 43.7, RDW Coeff of Jayme 13.0, Plt Count 244, MPV 9.7, Immature Gran % (Auto) 0.300, Neut % (Auto) 91.8 H, Lymph % (Auto) 3.6 L, [place] % (Auto) 4.0, Eos % (Auto) 0.0, Baso % (Auto) 0.3, Absolute Neuts (auto) 9.7 H, Absolute Lymphs (auto) 0.38 L, Nucleated RBC % 0, Differential Comment SCANNED 04/04/21 22:01: Sodium 139, Potassium 4.0, Chloride 107, Carbon Dioxide 23.0, Anion Gap 9, BUN 18, Creatinine 0.92, Estim Creat Clear Calc 61.07, Est GFR (MDRD) Af Amer 82, Est GFR (MDRD) Non-Af 68, BUN/Creatinine Ratio 19.6, Glucose 125 H, Calcium 9.6 04/05/21 01:10: PT 12.6, INR 1.0, APTT 28.7 04/05/21 01:12: Magnesium 1.8, Troponin I High Sens 123 H*, TSH 0.17 L 04/05/21 01:45: WBC 10.3, RBC 3.67 L, Hgb 11.1 L, Hct 33.8 L, MCV 92.1, MCH 30.2, MCHC 32.8, RDW Std Deviation 44.3 H, RDW Coeff of Jayme 13.2, Plt Count 231, MPV 9.8, Immature Gran % (Auto) 0.400, Neut % (Auto) 95.1 H, Lymph % (Auto) 2.4 L, [place] % (Auto) 1.9, Eos % (Auto) 0.0, Baso % (Auto) 0.2, Absolute Neuts (auto) 9.8 H, Absolute Lymphs (auto) 0.25 L, Nucleated RBC % 0, Differential Comment SCANNED 04/05/21 03:16: Troponin I High Sens 272 H* Micro: Microbiology 04/05/21 02:11 Nasal Secretion SARS-CoV-2 Antigen (Rapid) - Final Radiology Impression Chest X-Ray 04/04/21 21:21 IMPRESSION: No acute cardiopulmonary disease. Electronically Signed: Quang Lowry DO at 21:41 EST Reading Location ID and State: [address] [place] [address] Tel [phone], Service support , Chest CTA 04/05/21 01:02 IMPRESSION: 1. Patchy bilateral groundglass pulmonary infiltrate possibly representing atypical or viral pneumonia. Correlate with COVID status. 2. Mild peribronchial thickening also present, suggesting superimposed bronchitis. 3. No pulmonary embolus identified. 4. Hepatic steatosis with indeterminate subcentimeter enhancing lesion within left lobe of liver. Favor small benign hemangioma. Hepatic neoplasm not entirely excluded. Consider dedicated nonemergent follow-up 3-phase liver CT or MRI in 3-6 months. Individualized dose optimization techniques were used for this CT. at 0156 Reported and signed by: Phil Harman MD Electronically Signed: Phil Harman MD at 1:55 EST , Assessment & Plan Assessment/Plan (1) Non-ST elevated myocardial infarction (non-STEMI): (2) Asthma exacerbation: QUALIFIERS: Asthma severity: moderate Asthma persistence: persistent Qualified Code(s): J45.41 - Moderate persistent asthma with (acute) exacerbation (3) Hypoxia: PLAN: 1. Acute hypoxic respiratory insufficiency secondary to acute asthma exacerbation versus COVID-19 pneumonia Patient is currently on 2 L of oxygen; has underlying history of asthma Not vaccinated; rapid COVID-19 antigen test is negative, COVID-19 PCR is pending Chest x-ray is unremarkable but CTA of the chest shows interstitial patchy infiltrates Patient's clinical presentation is that of severe asthma exacerbation Obtain respiratory panel, continue breathing treatment, IV Solu-Medrol, consider switch to dexamethasone if Covid comes back positive Started on IV ceftriaxone azithromycin; will continue with azithromycin Continue to wean off oxygen, encourage use of incentive spirometer 2. Elevated troponins, unclear etiology for now, patient is asymptomatic, likely secondary to #1 EKG shows sinus tachycardia, no acute ST changes, CTA of the chest is negative for acute PE. No evidence of acute kidney injury Will trend troponins, cardiology consulted from the ED Will hold off heparin drip pending Covid test 3. Hypomagnesemia, magnesium is 1.8, replaced, recheck in a.m. 4. Liver lesion, noted on CTA chest, subcentimeter enhancing lesion, Needs to be followed up in the outpatient in 3-6 months 5. DVT PPx- Heparin SC Charges/Coding Visit Charges Inpatient E&M: 64072 Init Hosp L3
[2021-04-05 05:26] LABS: Free T3 2.2 pg/mL (2.18-3.98); T4 Free Direct 1.08 ng/dL (0.76-1.46)
[2021-04-05 06:11] LABS: Allen Test Positive; Base Excess -4 mmol/L (-2 to +2); Blood Gas Specimen Type ART; O2 Delivery Device Room Air; PO2 61 mmHG (75-100); SITE R Radial; SO2 91 % (95-99); Total Carbon Dioxide 22 mmol/L; pH 7.39 (7.35-7.45)
[2021-04-05] MEDS: 0.9% Saline Lock 10 ML Syringe IV ×2 (06:53→16:24)
[2021-04-05 07:48] LABS: Troponin-I HS 320 pg/mL (3.0-54.0)
[2021-04-05 07:50] LABS: Cholesterol 184 mg/dL (200); High Density Lipoprotein 97 mg/dL; Triglycerides 39 mg/dL; Very Low Density Lipoprotein 8 mg/dL (5-40)
[2021-04-05 07:52] LABS: Hemoglobin A1c 5.4 % (3.8-5.6)
[2021-04-05 08:16] LABS: BNP,B-Type NATRIURETIC PEPTIDE 157.1 pg/mL (0-100)
--- NOTE | 2021-04-05 10:45 | CASEMGMT ---
Addendum entered by Eunice Reina 04/05/21 13:10: This RN CM back to room to complete assessment and pt is just eating lunch. CM to attempt again later. Jose Carlos YORK CM Original Note: This RN CM to room to complete CM assessment and pt is getting ECHO at this time. CM to attempt again later. Jose Carlos YORK CM
--- NOTE | 2021-04-05 11:02 | PCM.CONS.C ---
Assessment & Plan Assessment/Plan (1) Non-ST elevated myocardial infarction (non-STEMI): PLAN: The patient does have abnormal cardiac enzymes. The etiology is unclear. It is unclear at this time whether these represent a type II event brought on by her noncardiovascular condition with respect to her underlying pulmonary condition. At the moment she does not have any other classic symptoms for an acute coronary syndrome nor does she have any other obvious objective findings. She is going to continue to be monitored. She did receive medical therapy with aspirin. There is hesitancy in proceeding with any other antiplatelet therapy or anticoagulant therapy secondary to concerns of her PRINCIPAL BIOINFORMATICS SPECIALIST aneurysm history. She is pending further noninvasive valuation of her left ventricular wall motion and systolic function with a transthoracic echocardiogram. She may eventually need further evaluation, if no other etiology to explain her cardiac enzymes, of her underlying coronary status with a diagnostic cardiac catheterization. However, based upon her noncardiac history especially her neurosurgical history and PRINCIPAL BIOINFORMATICS SPECIALIST aneurysm history there would be a concern as to whether or not she could proceed in such a manner based upon the potential need for antiplatelet and anticoagulant therapy as well as where to have such a procedure performed knowing [facility] does not have neurosurgical physicians/consultation/procedures available at this time. Thus consideration would have to be given as to should such a procedure be performed at the [facility] [place]. 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 A request has been made for pulmonology consultation to assist with her ongoing pulmonary evaluation and care. (3) Atypical pneumonia: PLAN: The patient is being evaluated for any underlying pneumonitis that would be contributing to her symptoms and findings by internal medicine as well as with respect to pulmonology consultation. Addt'l Comments The patient's case has been discussed and reviewed with the patient, the [facility] ED staff, the [facility] hospital staff (Drs. Chiang and Tolu) and Dr. Quiroz of the [facility] pulmonology/critical care staff. HPI Consult Data Date of Consult: 04/05/21 HPI Narrative HPI Narrative: NAYANA LOREDO, is a 55 year old white female who presents for cardiovascular consultation based upon concerns of abnormal cardiac enzymes superimposed upon concerns of an acute reactive airways disease/asthma event and an anxiety attack . The patient denies any previous cardiovascular history that she is aware of other than stating, from a vascular standpoint, she does have a PRINCIPAL BIOINFORMATICS SPECIALIST aneurysm that is being followed by [facility] neurosurgery. She does not recall undergoing any type of cardiac testing in the past. She notes recently she has been having issues for which she was diagnosed with both sinusitis and a ear infection. She was placed on antibiotic therapy and a corticosteroid tapering therapy. However, she has barely started those medications when she noted her reactive airway disease/asthma to flare up . She states she was having difficulty breathing and was noticing audible wheezing. She stated she presented to the [facility] emergency department for evaluation and was subsequently released home on her medical management. However at home when she was having difficulty with her albuterol nebulizer she states she felt like she also launched into a anxiety attack . She called 911 and was brought back to the emergency department for reevaluation. She denied any chest discomfort other than what she believes is the sensation in her chest related to her reactive airway disease/asthma related symptoms. She did not describe classic angina pectoris related type symptoms. She was short of breath and dyspneic and had audible wheezing. She has not describe orthopnea or PND or peripheral pitting edema. She has had no reports of near syncope or syncope. In the emergency department she was evaluated and was noted to have a troponin I level reported at 123. Over time it has been reassessed and has increased to 272 and subsequently 320. Her ECG demonstrated the appearance of sinus tachycardia with no acute electrocardiographic changes. She underwent evaluation with a chest x-ray and a chest CTA. The results are noted below. She also underwent COVID-19 testing with both a rapid antigen test and a PCR test. According to the [facility] emergency department staff and hospital staff both tests were negative. She was then placed in the PCU for further evaluation and care. At the time of her evaluation she denied any ongoing chest discomfort. She still felt as if she was dealing with her asthma as she was having audible wheezing and a very raspy voice. She also notes she does not recall from her neurosurgery consultation whether she was told to avoid aspirin or aspirin-like products or any type of anticoagulant type products with respect to her PRINCIPAL BIOINFORMATICS SPECIALIST aneurysm. She also states she has a pituitary tumor. She states she was evaluated by [facility] endocrinology for that as well. She notes she was on medical therapy to shrink the tumor. She states she is no longer on that medication. [facility] Medical History Asthma Chest pain Depression GERD (gastroesophageal reflux disease) Hypothyroidism Kidney stones Migraines Non-smoker Home Medications fluoxetine 20 mg PO DAILY 03/10/17 [History Last Taken Unknown] levothyroxine 100 mcg PO DAILY 03/10/17 [History Last Taken 04/04/21] albuterol sulfate [Proair Hfa (SP)Vent Pts] 1 - 2 puff INHALATION Q4H PRN PRN 03/13/17 [History Last Taken 03/20/17 07:00] albuterol sulfate [Ventolin Hfa (SP)] 1 - 2 puff INHALATION Q4H PRN PRN 03/13/17 [History Last Taken 03/20/17 07:00] albuterol sulfate 2.5 mg INHALATION Q4H PRN PRN #90 vial 04/04/21 [Rx Last Taken Unknown] ipratropium-albuterol 3 ml INHALATION 4X/DAY PRN PRN #180 ml 04/04/21 [Rx Last Taken Unknown] cefdinir 300 mg PO BID 04/05/21 [History Last Taken 04/04/21] diclofenac sodium 2 g TOPICAL 4X/DAY 04/05/21 [History Last Taken Unknown] methylprednisolone 4 mg PO UD 04/05/21 [History Last Taken 04/04/21] omeprazole 20 mg PO DAILY 04/05/21 [History Last Taken 04/04/21] Allergy/AdvReac Type Severity Reaction Status Date / Time latex Allergy Rash Verified 04/04/21 21:21 Penicillins Allergy Rash Verified 04/04/21 21:21 codeine AdvReac Rash Verified 04/04/21 21:21 Family History (Updated 04/05/21 @ 06:[address] Bhargavi Chiang MD) Father Sudden cardiac Mother No problems noted. Surgical History no surgical history Social History (Updated 04/05/21 @ 06:[address] Bhargavi Chiang MD) current occupational status: employed Smoking Status: Never smoker alcohol intake: current alcohol intake frequency: holidays/special occasions only substance use type: does not use ROS Constitutional Constitutional: Reports as per HPI Eyes Eyes: Reports as per HPI ENT HEENT: Reports as per HPI Cardiovascular Cardiovascular: Reports dyspnea Respiratory/Chest Respiratory/Chest: Reports dyspnea Gastrointestinal Gastrointestinal: Reports systems reviewed and no addt'l complaints, except as documented Genitourinary Genitourinary: Reports as per HPI Musculoskeletal Musculoskeletal: Reports as per HPI Integumentary Integumentary: Reports as per HPI Neurologic Neurologic: Reports as per HPI Psychiatric Psychiatric: Reports anxiety Physical Exam Const alert and oriented x3 Orientation / Consciousness: awake HEENT normocephalic, head/scalp atraumatic and hearing grossly normal bilaterally Eyes PERRL, EOMs intact bilaterally and conjunctivae normal Neck full ROM, supple and no JVD Resp Auscultation: wheezes expiratory wheezes, inspiratory wheezes and throughout Cardio regular rhythm, S1 normal heart sound and S2 normal heart sound Rate: tachycardic GI normal to inspection, nondistended, normoactive bowel sounds Extremity no pedal edema Skin no rashes or lesions noted Neuro oriented x3, moves all extremities, no focal motor deficits and no sensory deficits noted Psych Psych Narrative: Anxious appearing Risk Stratification Risk Stratification Applicable: Yes Age >/= 65: No >/= 3 CAD Risk Factors (HTN, HLD, DM, family hx of CAD, or current smoker): No Aspirin Use in the Past 7 Days: No Severe Angina (>/= episodes in 24 hours): No EKG ST Changes >/= 0.5mm: No Positive Cardiac Marker: Yes CHECO Risk Stratification Score: 1 CHECO % Risk: 5% Risk Procedure Criteria Type of Procedure Procedure Type: Elective Elective Risks - COVID COVID Risk Discussion: The surgeon/proceduralist and patient have discussed in detail the risk of exposure to and/or potential harm posed by the COVID-19 virus with having a surgery/procedure at this time versus the risk of delaying the surgery/procedure. It is not possible to know either the risk of delaying the surgery or procedure or chance of getting an infection with perfect accuracy, but a joint decision was made between the patient and the surgeon/proceduralist to proceed at this time with the scheduled surgery/procedure as indicated on the consent form. Objective Data Vital Signs: Vital Signs Temp Pulse Resp BP Pulse Ox 97.7 F L 102 H 22 H 113/61 94 04/05/21 06:14 04/05/21 07:12 04/05/21 07:12 04/05/21 06:14 04/05/21 06:45 Oxygen Flow Rate (L/min) 2 Oxygen Delivery Method Nasal Cannula Weight: 123 lb 0.287 oz Body Mass Index (BMI) 21.1 Intake & Output: Intake and Output for Last 24 Hours 04/03/21 04/04/21 04/05/21 23:59 23:59 23:59 Intake Total 305 / 305 Balance 305 / 305 Lab / Micro Data Result Diagrams: 04/05/21 01:45 04/04/21 22:01 Labs: Laboratory Results - last 24 hr 04/04/21 22:01: WBC 10.5, RBC 3.99 L, Hgb 12.0, Hct 36.4 L, MCV 91.2, MCH 30.1, MCHC 33.0, RDW Std Deviation 43.7, RDW Coeff of Jayme 13.0, Plt Count 244, MPV 9.7, Immature Gran % (Auto) 0.300, Neut % (Auto) 91.8 H, Lymph % (Auto) 3.6 L, [place] % (Auto) 4.0, Eos % (Auto) 0.0, Baso % (Auto) 0.3, Absolute Neuts (auto) 9.7 H, Absolute Lymphs (auto) 0.38 L, Nucleated RBC % 0, Differential Comment SCANNED 04/04/21 22:01: Sodium 139, Potassium 4.0, Chloride 107, Carbon Dioxide 23.0, Anion Gap 9, BUN 18, Creatinine 0.92, Estim Creat Clear Calc 61.07, Est GFR (MDRD) Af Amer 82, Est GFR (MDRD) Non-Af 68, BUN/Creatinine Ratio 19.6, Glucose 125 H, Calcium 9.6 04/05/21 01:10: PT 12.6, INR 1.0, APTT 28.7 04/05/21 01:12: Magnesium 1.8, Troponin I High Sens 123 H*, TSH 0.17 L 04/05/21 01:45: WBC 10.3, RBC 3.67 L, Hgb 11.1 L, Hct 33.8 L, MCV 92.1, MCH 30.2, MCHC 32.8, RDW Std Deviation 44.3 H, RDW Coeff of Jayme 13.2, Plt Count 231, MPV 9.8, Immature Gran % (Auto) 0.400, Neut % (Auto) 95.1 H, Lymph % (Auto) 2.4 L, [place] % (Auto) 1.9, Eos % (Auto) 0.0, Baso % (Auto) 0.2, Absolute Neuts (auto) 9.8 H, Absolute Lymphs (auto) 0.25 L, Nucleated RBC % 0, Differential Comment SCANNED 04/05/21 01:45: Hemoglobin A1c 5.4 04/05/21 03:16: Troponin I High Sens 272 H* 04/05/21 03:16: Free T4 1.08, Free T3 pg/dL 2.2 04/05/21 04:35: COVID-19 (JENNIFER) Not Detected 04/05/21 07:22: Triglycerides 39, Cholesterol 184, LDL Cholesterol 79, VLDL Cholesterol 8, HDL Cholesterol 97 04/05/21 07:22: Troponin I High Sens 320 H* 04/05/21 07:22: B-Natriuretic Peptide 157.1 H Micro: Microbiology 04/05/21 05:58 Mucosa - Nasopharyngeal Respiratory Panel (PCR) - Final Rhinovirus 04/05/21 02:11 Nasal Secretion SARS-CoV-2 Antigen (Rapid) - Final ABG Data ABG results: ABG 04/05/21 04:30 Specimen Type ART Sample Site R Radial pH 7.39 Bicarbonate Actual 21.0 L Total CO2 22 Base Excess -4 L O2 Saturation 91 L ABG pCO2 35.0 ABG pO2 61 L Gualberto Test Positive O2 Delivery Device Room Air Cardiology Labs/Tests 04/04/21 22:01: WBC 10.5, RBC 3.99 L, Hgb 12.0, Hct 36.4 L, MCV 91.2, MCH 30.1, MCHC 33.0, Plt Count 244, MPV 9.7, Immature Gran % (Auto) 0.300, Neut % (Auto) 91.8 H, Lymph % (Auto) 3.6 L, [place] % (Auto) 4.0, Eos % (Auto) 0.0, Baso % (Auto) 0.3, Absolute Neuts (auto) 9.7 H, Nucleated RBC % 0 04/04/21 22:01: Sodium 139, Potassium 4.0, Chloride 107, Carbon Dioxide 23.0, Anion Gap 9, BUN 18, Creatinine 0.92, Est GFR (MDRD) Af Amer 82, Est GFR (MDRD) Non-Af 68, BUN/Creatinine Ratio 19.6, Glucose 125 H, Calcium 9.6 04/05/21 01:10: PT 12.6, INR 1.0, APTT 28.7 04/05/21 01:12: Magnesium 1.8 04/05/21 01:45: WBC 10.3, RBC 3.67 L, Hgb 11.1 L, Hct 33.8 L, MCV 92.1, MCH 30.2, MCHC 32.8, Plt Count 231, MPV 9.8, Immature Gran % (Auto) 0.400, Neut % (Auto) 95.1 H, Lymph % (Auto) 2.4 L, [place] % (Auto) 1.9, Eos % (Auto) 0.0, Baso % (Auto) 0.2, Absolute Neuts (auto) 9.8 H, Nucleated RBC % 0 04/05/21 01:45: Hemoglobin A1c 5.4 04/05/21 04:30: pH 7.39, Bicarbonate Actual 21.0 L, Base Excess -4 L, O2 Saturation 91 L, ABG pCO2 35.0, ABG pO2 61 L, Gualberto Test Positive 04/05/21 07:22: Triglycerides 39, Cholesterol 184, LDL Cholesterol 79, VLDL Cholesterol 8, HDL Cholesterol 97 04/05/21 07:22: B-Natriuretic Peptide 157.1 H Rhythm: Sinus rhythm/sinus tachycardia EKG: Sinus tachycardia ECHO: Pending Radiography Diagnostic Testing: Radiology Impression Chest X-Ray 04/04/21 21:21 IMPRESSION: No acute cardiopulmonary disease. Electronically Signed: Quang Lowry DO at 21:41 EST Reading Location ID and State: [facility] / [place] Tel [phone], Service support , Chest CTA 04/05/21 01:02 IMPRESSION: 1. Patchy bilateral groundglass pulmonary infiltrate possibly representing atypical or viral pneumonia. Correlate with COVID status. 2. Mild peribronchial thickening also present, suggesting superimposed bronchitis. 3. No pulmonary embolus identified. 4. Hepatic steatosis with indeterminate subcentimeter enhancing lesion within left lobe of liver. Favor small benign hemangioma. Hepatic neoplasm not entirely excluded. Consider dedicated nonemergent follow-up 3-phase liver CT or MRI in 3-6 months. Individualized dose optimization techniques were used for this CT. at 0156 Reported and signed by: Phil Harman MD Electronically Signed: Phil Harman MD at 1:55 EST ,
[2021-04-05] MEDS: Aspirin 81 MG TAB.CHEW PO (11:34)
--- NOTE | 2021-04-05 13:55 | CASEMGMT ---
JAYLEN GIBBONS assessment: Face to Face with patient for initial transition planning/care coordination assessment. JAYLEN GIBBONS introduced self and role at [facility], pt voices understanding and consents to assessment. Pt is lying in bed on room air in no distress. Pt is A/Ox4 and answers all questions appropriately. Care providers, pharmacy, and demographics verified. Presentation: Pt seen by PCP, dx w/ ear infection and nasal congestion-has had difficulty breathing on and off, feels worse today Admitting dx: AMELIA PCP: Manav Specialists: [facility] neurosurgeon; arnulfo other specialists at [facility] Preferred [facility]acy: [facility] Insurance: CRS Prescription Benefit: CRSC Living Will/HPOA: Pt is unsure if she has LW/HPOA but states would like AD info at this time. AD info provided. LNOK: Roz De León, mother Discharge parts salesperson: Kishor Caballero, friend-pt does not want to list Kishor Living Arrangements: Pt normally lives alone in 1 story home and states no concerns at home. Pt states her friend, Kishor, has been staying with her lately. Pt states independent with ADL's. Transportation: Pt drives self and states no transportation concerns. DME/HHC: Pt has a nebulizer but states it's travel size and doesn't work great. Pt would like to see if she can get new nebulizer at discharge. Pt states no hx of HHC or SNF. Pt states no concerns with going home at time of discharge. 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 Pt states does not smoke cigarettes or drink ETOH. Pt states no further concerns/needs. CM to follow for any further discharge planning/needs. Advised pt to ask for CM if any further questions/concerns/needs arise, voices understanding. Pt Goal: Home w/ new nebulizer Plan[place] JAYLEN GIBBONS
--- NOTE | 2021-04-05 14:25 | CHAPLAIN ---
Type of Pastoral Visit _x__ Initial Visit ___ Follow-up Visit ___ On-call Visit ___ General Patient Visit ___ Spiritual Assessment ___ Family Conference ___ Bereavement ___ Rapid Response ___ Code Blue ___ Other (describe below) Pastoral Care Referral From _x__ Patient ___ Family ___ Nurse ___ Physician ___ Marklogic Developer ___ Card Hand ___ Other (describe below) Sacrament/Intervention _x__ Active listening ___ Anointing ___ Yazidi ___ Bereavement ___ Communion _x__ Ileana exploration ___ _x__ Life review _x__ Prayer ___ Reconciliation ___ Sacrament of Sick _x__ Supportive presence ___ Wedding ___ Other (describe below) Pastoral Comments patient and SO are in room; both tell the story of illness, fear, and coming to the ED; pt admits to being scared about dying; pt is doing better but tired; pt has learned some of the reason she is sick; pt is hopeful now about recovery;both welcome prayer
[2021-04-05] MEDS: MELATONIN 3 MG TABLET PO (21:36)
[2021-04-06] VITALS (11 sets, daily range): BP systolic 97–110; BP diastolic 60–67; PULSE 83–103; RESP 14–19; TEMP 36.6–36.8; O2SAT 92–97
[2021-04-06 05:47] LABS: Absolute Lymphocyte Count 0.86 X10^3/uL (0.83-4.51); Absolute Neutrophil Count 21.4 X10^3/uL (2.0-7.7); Basophil# 0.02 X10^3/uL; Basophil% 0.1 % (0-1); Hematocrit 36.3 % (37-47); Lymphocyte # 0.86 X10^3/ul (0.83-4.51); Lymphocyte % 3.7 % (19-41); Mean Corp Hgb Conc 33.1 g/dL (32-36); Mean Corpuscular Hgb 29.9 pg (27.0-32.0); Mean Corpuscular Volume 90.5 fL (81-99); Mean Platelet Vol. 9.9 fl (6.2-12.0); Monocyte# 0.88 X10^3/uL; Monocyte% 3.8 % (0-10); NRBC Flagged by Analyzer 0 % (0-5); Neutrophil # 21.44 X10^3/uL (2.7-7.7); Neutrophil % 91.4 % (47-70); POSITIVE DIFFERENTIAL YES; Platelet Count 319 K/mm3 (150-450); RBC Distribution Width CV 13.9 % (11.6-14.6); RBC Distribution Width SD 46.5 fl (35.1-43.9); Red Blood Count 4.01 M/mm3 (4.2-5.4); White Blood Count 23.4 K/mm3 (4.4-11.0)
--- NOTE | 2021-04-06 05:55 | EKG12_ITS ---
Test Reason : AM EKG Blood Pressure : / mmHG Vent. Rate : 086 BPM Atrial Rate : 086 BPM P-R Int : 146 ms QRS Dur : 078 ms QT Int : 404 ms P-R-T Axes : 079 068 061 degrees QTc Int : 483 ms Normal sinus rhythm Prolonged QT Abnormal ECG When compared with ECG of 05-APR-2021 01:38, No significant change was found Confirmed by DERREK AMADOR, SAM ([id number]), publishing editor SOLE CARDENAS ([id number]) on 04/09/2021 1:30:02 PM Referred By: ALISE Confirmed By:MENDEL ANGLIN MD
[2021-04-06 05:56] LABS: Differential Indicated SCAN CRITERIA MET
[2021-04-06 06:35] LABS: ALB/GLOB Ratio 0.8 RATIO (0.9-2.4); AST(SGOT) 56 U/L (15-37); Alanine Aminotransfer ALT/SGPT 80 U/L (13-56); Albumin, Serum 3.6 g/dL (3.2-5.0); Alkaline Phosphatase 114 U/L (45-117); Anion Gap 6 (5-15); BUN 26 mg/dL (7-18); BUN/Creat Ratio 25.7 RATIO (10-20); Calcium,Total 9.7 mg/dL (8.5-10.1); Chloride 104 mmol/L (98-107); Creatinine, Serum 1.01 mg/dL (0.55-1.02); EST Glomerular Filtration Rate 61 mL/min (>60); Est Glom Filt Rate - Afr Amer 74 mL/min (>60); Estimated Creatinine Clearance 55.63 ml/min; Globulin 4.6 g/dL (2.2-4.2); Glucose 120 mg/dL (74-106); Magnesium 2.6 mg/dL (1.6-2.6); Potassium 4.2 mmol/L (3.5-5.1); Protein, Total 8.2 g/dL (6.4-8.2); Sodium Level 135 mmol/L (136-145); Troponin-I HS 47 pg/mL (3.0-54.0)
[2021-04-06 06:41] LABS: Differential Comment SCANNED
[2021-04-06] MEDS: Ipratropium/Albuterol Sulfate 3 ML AMPUL.NEB INHALATION ×2 (07:26→11:42)
--- NOTE | 2021-04-06 08:44 | PCM.PN.CARD ---
Subjective Subjective The patient looks better and states she feels somewhat better today with both her anxiety and her respirations. Objective Data Vital Signs: Vital Signs Temp Pulse Resp BP Pulse Ox 98 F 93 19 H 97/65 96 04/06/21 03:30 04/06/21 07:25 04/06/21 07:25 04/06/21 03:30 04/06/21 07:25 Oxygen Flow Rate (L/min) 2 Oxygen Delivery Method Room Air Weight: 122 lb 9.232 oz Body Mass Index (BMI) 21.1 Intake & Output: Intake and Output for Last 24 Hours 04/04/21 04/05/21 04/06/21 23:59 23:59 23:59 Intake Total 1221.75 / 1221.75 Balance 1221.75 / 1221.75 Lab / Micro Data Result Diagrams: 04/06/21 05:16 04/06/21 05:16 Labs: Laboratory Results - last 24 hr 04/06/21 05:16: WBC 23.4 H, RBC 4.01 L, Hgb 12.0, Hct 36.3 L, MCV 90.5, MCH 29.9, MCHC 33.1, RDW Std Deviation 46.5 H, RDW Coeff of Jayme 13.9, Plt Count 319, MPV 9.9, Immature Gran % (Auto) 1.000 H, Neut % (Auto) 91.4 H, Lymph % (Auto) 3.7 L, [place] % (Auto) 3.8, Eos % (Auto) 0.0, Baso % (Auto) 0.1, Absolute Neuts (auto) 21.4 H, Absolute Lymphs (auto) 0.86, Nucleated RBC % 0, Differential Comment SCANNED 04/06/21 05:16: Sodium 135 L, Potassium 4.2, Chloride 104, Carbon Dioxide 25.0, Anion Gap 6, BUN 26 H, Creatinine 1.01, Estim Creat Clear Calc 55.63, Est GFR (MDRD) Af Amer 74, Est GFR (MDRD) Non-Af 61, BUN/Creatinine Ratio 25.7 H, Glucose 120 H, Calcium 9.7, Magnesium 2.6, Total Bilirubin 0.20, AST 56 H, ALT 80 H, Alkaline Phosphatase 114, Troponin I High Sens 47, Total Protein 8.2, Albumin 3.6, Globulin 4.6 H, Albumin/Globulin Ratio 0.8 L Micro: Microbiology 04/05/21 05:58 Mucosa - Nasopharyngeal Respiratory Panel (PCR) - Final Rhinovirus Cardiology Labs/Tests 04/06/21 05:16: WBC 23.4 H, RBC 4.01 L, Hgb 12.0, Hct 36.3 L, MCV 90.5, MCH 29.9, MCHC 33.1, Plt Count 319, MPV 9.9, Immature Gran % (Auto) 1.000 H, Neut % (Auto) 91.4 H, Lymph % (Auto) 3.7 L, [place] % (Auto) 3.8, Eos % (Auto) 0.0, Baso % (Auto) 0.1, Absolute Neuts (auto) 21.4 H, Nucleated RBC % 0 04/06/21 05:16: Sodium 135 L, Potassium 4.2, Chloride 104, Carbon Dioxide 25.0, Anion Gap 6, BUN 26 H, Creatinine 1.01, Est GFR (MDRD) Af Amer 74, Est GFR (MDRD) Non-Af 61, BUN/Creatinine Ratio 25.7 H, Glucose 120 H, Calcium 9.7, Magnesium 2.6, Total Bilirubin 0.20 Rhythm: Sinus rhythm/sinus tachycardia EKG: Sinus rhythm; no acute ECG changes ECHO: Please see below Radiography Diagnostic Testing: Radiology Impression Echocardiogram 04/05/21 04:57 Interpretation Summary Left ventricular systolic function is normal. The estimated ejection fraction is 70 %. Apical false tendon noted. Trivial mitral valve insufficiency. Trivial tricuspid valve insufficiency. Unable to estimate RV systolic pressure due to insufficient tricuspid regurgitant envelope. Transmitral doppler flow suggestive of impaired relaxation of left ventricle Ordering Physician: Bhargavi Chiang Referring Physician: JAMIA CLEARY Performed By: Estela Childs, SHUKRI, RVT Physical Exam Const alert and oriented x3 Orientation / Consciousness: awake HEENT normocephalic, head/scalp atraumatic and hearing grossly normal bilaterally Eyes PERRL, EOMs intact bilaterally and conjunctivae normal Neck full ROM, supple and no JVD Resp Auscultation: wheezes expiratory wheezes, inspiratory wheezes and throughout (Somewhat less prominent than yesterday) Cardio regular rhythm, S1 normal heart sound and S2 normal heart sound Rate: tachycardic GI normal to inspection, nondistended, normoactive bowel sounds Extremity no pedal edema Skin no rashes or lesions noted Neuro oriented x3, moves all extremities, no focal motor deficits and no sensory deficits noted Psych Psych Narrative: Anxious appearing Assessment & Plan Assessment/Plan (1) Non-ST elevated myocardial infarction (non-STEMI): PLAN: The patient does have abnormal cardiac enzymes. The repeat troponin I level has normalized. The follow-up ECG demonstrates no new acute ECG changes. The echocardiogram is as noted demonstrating no obvious left ventricular regional wall motion abnormalities or diminished LV systolic function. At the present time this may be a type II event brought out by her underlying acute respiratory related event/associated anxiety related event. She is continuing medical therapy with aspirin at this time with no obvious adverse event. 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 She may eventually need further evaluation, if no other etiology to explain her cardiac enzymes, of her underlying coronary status with a diagnostic cardiac catheterization. However, based upon her noncardiac history especially her neurosurgical history and SALES COORDINATOR aneurysm history there would be a concern as to whether or not she could proceed in such a manner based upon the potential need for antiplatelet and anticoagulant therapy as well as where to have such a procedure performed knowing [facility] does not have neurosurgical physicians/consultation/procedures available at this time. Thus consideration would have to be given as to should such a procedure be performed at the [facility] Main [place]. 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 She states she would like to have a motor bike mechanic assist in her care. This was discussed with the [facility] staff. (3) Atypical pneumonia: PLAN: The patient is being evaluated for any underlying pneumonitis that would be contributing to her symptoms and findings by internal medicine as well as with respect to pulmonology consultation. (4) Anxiety: PLAN: The patient also states she would like to seek some referral for professional assistance with her anxiety which worsens her reactive airway disease/asthma related events. Addt'l Comments This note was generated using a voice recognition system and there may be incorrect words, spelling or punctuation that were not noted when reviewing the office note prior to saving.
--- NOTE | 2021-04-06 09:50 | PN.HOSP_ITS ---
Subjective Subjective Feels better today, denies any significant shortness of breath and she is maintaining herself on room air currently. Objective Data Objective Data Vital Signs: Vital Signs Temp Pulse Resp BP Pulse Ox 98 F 93 19 H 97/65 96 04/06/21 03:30 04/06/21 07:25 04/06/21 07:25 04/06/21 03:30 04/06/21 07:25 Oxygen Flow Rate (L/min) 2 Oxygen Delivery Method Room Air Weight: 122 lb 9.232 oz Body Mass Index (BMI) 21.1 Intake & Output: Intake and Output for Last 24 Hours 04/05/21 04/06/21 04/07/21 03:59 03:59 03:59 Intake Total 1221.75 / 1221.75 Balance 1221.75 / 1221.75 Lab / Micro Data Result Diagrams: 04/06/21 05:16 04/06/21 05:16 Labs: Laboratory Results - last 24 hr 04/06/21 05:16: WBC 23.4 H, RBC 4.01 L, Hgb 12.0, Hct 36.3 L, MCV 90.5, MCH 29.9, MCHC 33.1, RDW Std Deviation 46.5 H, RDW Coeff of Jayme 13.9, Plt Count 319, MPV 9.9, Immature Gran % (Auto) 1.000 H, Neut % (Auto) 91.4 H, Lymph % (Auto) 3.7 L, [place] % (Auto) 3.8, Eos % (Auto) 0.0, Baso % (Auto) 0.1, Absolute Neuts (auto) 21.4 H, Absolute Lymphs (auto) 0.86, Nucleated RBC % 0, Differential Comment SCANNED 04/06/21 05:16: Sodium 135 L, Potassium 4.2, Chloride 104, Carbon Dioxide 25.0, Anion Gap 6, BUN 26 H, Creatinine 1.01, Estim Creat Clear Calc 55.63, Est GFR (MDRD) Af Amer 74, Est GFR (MDRD) Non-Af 61, BUN/Creatinine Ratio 25.7 H, Glu cose 120 H, Calcium 9.7, Magnesium 2.6, Total Bilirubin 0.20, AST 56 H, ALT 80 H , Alkaline Phosphatase 114, Troponin I High Sens 47, Total Protein 8.2, Albumin 3.6, Globulin 4.6 H, Albumin/Globulin Ratio 0.8 L Micro: Microbiology 04/05/21 05:58 Mucosa - Nasopharyngeal Respiratory Panel (PCR) - Final Rhinovirus 04/05/21 02:11 Nasal Secretion SARS-CoV-2 Antigen (Rapid) - Final Radiography Diagnostic Testing: Radiology Impression Echocardiogram 04/05/21 04:57 Interpretation Summary Left ventricular systolic function is normal. The estimated ejection fraction is 70 %. Apical false tendon noted. Trivial mitral valve insufficiency. Trivial tricuspid valve insufficiency. Unable to estimate RV systolic pressure due to insufficient tricuspid regurgitant envelope. Transmitral doppler flow suggestive of impaired relaxation of left ventricle Ordering Physician: Bhargavi Chiang Referring Physician: JAMIA CLEARY Performed By: Estela Childs, MATTHIEUCS, RVT Physical Exam Const alert, oriented x3 and no apparent distress General Appearance: cooperative HEENT normocephalic and moist oral mucous membranes Eyes PERRL, EOMs intact bilaterally and conjunctivae normal Neck supple and no JVD Resp normal respiratory effort, no retractions and no use of accessory muscles Auscultation: wheezes; Negative for crackles, rales or rhonchi Cardio regular rate, regular rhythm, S1 normal heart sound, S2 normal heart sound and no murmurs GI soft to palpation, non-tender and non-distended; Negative for hepatosplenomegaly Extremity no clubbing, cyanosis or edema Skin no rashes or lesions noted Neuro no focal motor deficits and no sensory deficits noted Psych affect normal Appearance: appropriate Assessment & Plan Assessment/Plan (1) Non-ST elevated myocardial infarction (non-STEMI): (2) Asthma exacerbation: QUALIFIERS: Asthma severity: moderate Asthma persistence: persistent Qualified Code(s): J45.41 - Moderate persistent asthma with (acute) exacerbation (3) Hypoxia: PLAN: 1. Acute hypoxic respiratory failure secondary to acute asthma exacerbation due to rhinovirus ?Covid antigen testing and PCR testing was negative ?Chest x-ray was unremarkable CT of the chest showed patchy infiltrates consistent with viral pneumonia ?She does have a history of asthma and she uses her inhaler on a regular month around 2-3 times a week and denies any nocturnal symptoms. 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 Elevated troponins from demand ischemia ?Given her tachycardia as well as her recent issues with an asthma exacerbation likely hypoxia at home ?Appreciate cardiology input ?Would benefit from outpatient cardiology work-up however there is some concern for possible brain aneurysm, we did try to get in contact with her PCP who has no record of this thing he does not know who her neurologist is, she states that she has most of her care done with his [facility] therefore given the concern for brain aneurysm may be beneficial to have further cardiac work-up done at the [facility] or to have neurosurgical backup ?She remains asymptomatic and denies any chest pain 3. Liver lesion ?Noted on CTA chest, subcentimeter enhancing lesion ?Needs to be followed up in the outpatient in 3-6 months 4. Hypothyroidism ?Stable ?Continue with Synthroid 5. GERD ?Stable ?Continue with PPI 6. Anxiety/depression ?Stable ?Continue with Prozac DVT: SCDs Charges/Coding Visit Charges Inpatient E&M: 45697 Subs Hosp L2
[2021-04-06] MEDS: Acetaminophen 325 MG Tablet 650 MG PO (10:06)
[2021-04-06] MEDS: Aspirin 81 MG TAB.CHEW PO (10:06)
[2021-04-06] MEDS: 0.9% Saline Lock 10 ML Syringe IV ×2 (10:07→14:45)
--- NOTE | 2021-04-06 13:51 | PCM.DC ---
Discharge Instructions Diet Discharge Diet: No restrictions Activity Discharge Activity: Return to Normal Activity Dressing / Incision Call your doctor if you observe: Fever of 101 or Higher, Shortness of breath, Dizziness, Fainting spells, Swelling in the ankles, Chest pain and Increased palpitations (irregular heartbeat) Follow Up Care Test Results: Test results from this visit will be discussed in further detail at your follow-up appointment, if applicable. Discharge Plan Admission Admit Date/Time: 04/05/21 04:50 Attending Provider: Ed Motley Primary Care Provider: Jose G Em Discharge Orders/Prescriptions Prescriptions: New ipratropium-albuterol 0.5 mg-3 mg(2.5 mg base)/3 mL solution for nebulization 3 ml inhalation 4X/DAY PRN PRN (Reason: shortness of breath or wheezing) Qty: 180 RF: 0 albuterol sulfate 2.5 mg /3 mL (0.083 %) solution for nebulization 2.5 mg inhalation Q4H PRN PRN (Reason: shortness of breath or wheezing) Qty: 90 RF: 0 aspirin 81 mg Tablet,Chewable 81 mg PO BREAKFAST Qty: 30 RF: 0 prednisone 20 mg tablet 40 mg PO DAILY 7 Days Qty: 14 RF: 0 Continued albuterol sulfate [ProAir HFA] 1 PUFF inhaler 1 - 2 puff inhalation Q4H PRN PRN (Reason: Asthma) RF: 0 albuterol sulfate [Ventolin HFA] 1 INHALER inhaler 1 - 2 puff inhalation Q4H PRN PRN (Reason: Asthma) RF: 0 levothyroxine 100 MCG tablet 100 mcg PO DAILY RF: 0 fluoxetine 20 MG capsule 20 mg PO DAILY RF: 0 omeprazole 20 mg capsule,delayed release(DR/EC) 20 mg PO DAILY RF: 0 diclofenac sodium 1 % gel 2 g TOPICAL 4X/DAY RF: 0 Discontinued methylprednisolone 4 mg tablets,dose pack 4 mg PO UD RF: 0 cefdinir 300 mg capsule 300 mg PO BID RF: 0 Referrals / Follow Up: Mir Quiroz MD [STAFF PHYSICIAN] - Within 3 Months Jose G Em DO [Primary Care Provider] - Within 1 Week Disposition Disposition (needs filled in before D/C Order can be placed): Home, Self Care
--- NOTE | 2021-04-06 13:55 | DS.PCM_ITS ---
Providers Date of Admission: 04/05/21 Primary Care Physician: Dr. Jose G Em DO Consultations 04/05/21 06:13 Consult: Cardiology Routine Consulting Provider: Bucky Milner Reason for Consult: NSTEMI EMERGENT Consult: No MD Notified: Yes Date Notified: 04/05/21 Time Notified: 07:51 Method of Notification: Text Reason For Visit: CHEST PAIN Diagnosis Discharge Diagnosis (1) Non-ST elevated myocardial infarction (non-STEMI): Status: Acute Code(s): I21.4 - Non-ST elevation (NSTEMI) myocardial infarction (2) Asthma exacerbation: Status: Acute Code(s): J45.901 - Unspecified asthma with (acute) exacerbation Qualifiers: Asthma severity: moderate Asthma persistence: persistent Qualified Code(s): J45.41 - Moderate persistent asthma with (acute) exacerbation (3) Hypoxia: Status: Acute Code(s): R09.02 - Hypoxemia Medications at Discharge Home Medications fluoxetine 20 mg PO DAILY 03/10/17 levothyroxine 100 mcg PO DAILY 03/10/17 albuterol sulfate [ProAir HFA] 1 - 2 puff INHALATION Q4H PRN PRN 03/13/17 albuterol sulfate [Ventolin HFA] 1 - 2 puff INHALATION Q4H PRN PRN 03/13/17 albuterol sulfate 2.5 mg INHALATION Q4H PRN PRN #90 vial 04/04/21 ipratropium-albuterol 3 ml INHALATION 4X/DAY PRN PRN #180 ml 04/04/21 diclofenac sodium 2 g TOPICAL 4X/DAY 04/05/21 omeprazole 20 mg PO DAILY 04/05/21 aspirin 81 mg PO BREAKFAST #30 tab 04/06/21 prednisone 40 mg PO DAILY 7 Days #14 tab 04/06/21 Hospital Course Operations None Procedures 2-D Echocardiogram Summary of Care Provided Minutes Spent on Discharge: 45 Hospital Course: Per HPI: NAYANA LOREDO, is a 55 F who presents with the above. Patient has been having upper respiratory ongoing for 2 days. She was seen at the urgent care and diagnosed with sinusitis and ear infection. She was started on antibiotics and steroids. She has not been feeling well, admits to subjective fever and chills, body aches. She denied any loss of smell or taste. She denied any sputum production, admits to dyspnea on exertion, denied any orthopnea or PND. She is unvaccinated against COVID-19 pneumonia. She called her friend who brought her to the emergency department earlier on. Work-up in the ED at that time was unremarkable. Patient had evidence of asthma exacerbation with tachycardia. She however was saturating in the 90s. She did not qualify for oxygen. She refused a Covid test at that time.She was discharged home on breathing treatment. She presented back because she was progressively very short of breath and did not look well. Vitals in the ED showed blood pressure 116/72, heart rate of 110, respiratory rate 18, SPO2 is 92% on room air, temperature 97.9 F. Admitting blood work showed WBC count 10.3, hemoglobin 11.1, platelet count 231, BMP was unremarkable, magnesium 1.8, TSH 0.17, free T4 and free T3 were normal. Troponin was elevated initially at 123, later 272 COVID-19 rapid antigen test w as negative, COVID-19 PCR is pending. Chest x-ray was unremarkable. CTA of the chest showed patchy bilateral groundglass opacities, hepatic steatosis with indeterminate enhancing lesion. EKG shows sinus tachycardia. Hospital Course: 1. Acute hypoxic respiratory failure secondary to acute asthma exacerbation secondary to rhinovirus?55-year-old female with a history of asthma presented to the hospital with hypoxia and tachycardia. She did test negative for Covid initially thought that she had atypical pneumonia she had been discharged on a previous visit to the ER on cefdinir and a Medrol Dosepak however this time she felt even worse so she was admitted for monitoring, she also did have an elevation in her troponin. Respiratory panel did come back for rhinovirus so she was discharged on no antibiotics. She had initially been started on azithromycin and she did receive 2 doses of that antibiotics as well. She is currently on room air and did not require any oxygen with ambulation. I did discuss with her and her extensively about the possibility for discharge today and they both expressed understanding of the risk and benefits of going home and she would like to go home today. I did offer her the possibility of staying an extra night but she felt that she would do okay at home. Plan will be for 7 days of prednisone and I also did discuss with her that with her albuterol inhaler, if she were to do 4 to 6 puffs every 4 hours that would be equivalent to nebulizer dosing. She will need to follow-up with her PCP as an outpatient and I will also like her to follow-up with pulmonology as an outpatient for evaluation of her asthma. She does use her inhaler at home on about 2-3 times a week and she denies any nighttime symptoms. 2. Elevated troponin secondary to demand ischemia?given the tachycardia and the hypoxia that she has had over the last several days her troponin was elevated. She has denied any chest pain. Cardiology evaluated her and felt uncomfortable performing any type of cardiac cath given the possibility of a cerebral aneurysm per her report. She will need to follow-up with her PCP and establish with a cloth opener hand within the [facility] system on the off chance that she does have a cerebral aneurysm that would need neurosurgical backup. In the meantime we will continue with aspirin daily. 3. Liver lesion?she did have a CT of the chest on admission and it was noted that she had a subcentimeter enhancing lesion this will need to be followed up as an outpatient with repeat imaging in 3 to 6 months. 4. Hypothyroidism, GERD, anxiety and depression are all chronic medical conditions which complicate her care. Her home medications were continued where appropriate Weight / BMI Weight Weight: 122 lb 9.232 oz Body Mass Index (BMI) 21.1 ABG / Lab / Microbiology Data Result Diagrams: 04/06/21 05:16 04/06/21 05:16 Laboratory: Laboratory Results - last 24 hr 04/06/21 05:16: WBC 23.4 H, RBC 4.01 L, Hgb 12.0, Hct 36.3 L, MCV 90.5, MCH 29.9, MCHC 33.1, RDW Std Deviation 46.5 H, RDW Coeff of Jayme 13.9, Plt Count 319, MPV 9.9, Immature Gran % (Auto) 1.000 H, Neut % (Auto) 91.4 H, Lymph % (Auto) 3.7 L, [place] % (Auto) 3.8, Eos % (Auto) 0.0, Baso % (Auto) 0.1, Absolute Neuts (auto) 21.4 H, Absolute Lymphs (auto) 0.86, Nucleated RBC % 0, Differential Comment SCANNED 04/06/21 05:16: Sodium 135 L, Potassium 4.2, Chloride 104, Carbon Dioxide 25.0, Anion Gap 6, BUN 26 H, Creatinine 1.01, Estim Creat Clear Calc 55.63, Est GFR (MDRD) Af Amer 74, Est GFR (MDRD) Non-Af 61, BUN/Creatinine Ratio 25.7 H, Glucose 120 H, Calcium 9.7, Magnesium 2.6, Total Bilirubin 0.20, AST 56 H, ALT 80 H, Alkaline Phosphatase 114, Troponin I High Sens 47, Total Protein 8.2, Albumin 3.6, Globulin 4.6 H, Albumin/Globulin Ratio 0.8 L Microbiology: Microbiology 04/05/21 05:58 Mucosa - Nasopharyngeal Respiratory Panel (PCR) - Final Rhinovirus 04/05/21 02:11 Nasal Secretion SARS-CoV-2 Antigen (Rapid) - Final D/C Instructions Discharge Diet: No restrictions Call your doctor if you observe: Fever of 101 or Higher, Shortness of breath, Dizziness, Fainting spells, Swelling in the ankles, Chest pain and Increased palpitations (irregular heartbeat) Meaningful Use Info Meaningful Use Diagnoses (Choose all that apply): None applicable Discharge Plan Admission Admit Date/Time: 04/05/21 04:50 Attending Provider: Ed Motley Primary Care Provider: Jose G Em Discharge Orders/Prescriptions Prescriptions: New ipratropium-albuterol 0.5 mg-3 mg(2.5 mg base)/3 mL solution for nebulization 3 ml inhalation 4X/DAY PRN PRN (Reason: shortness of breath or wheezing) Qty: 180 RF: 0 albuterol sulfate 2.5 mg /3 mL (0.083 %) solution for nebulization 2.5 mg inhalation Q4H PRN PRN (Reason: shortness of breath or wheezing) Qty: 90 RF: 0 aspirin 81 mg Tablet,Chewable 81 mg PO BREAKFAST Qty: 30 RF: 0 prednisone 20 mg tablet 40 mg PO DAILY 7 Days Qty: 14 RF: 0 Continued albuterol sulfate [ProAir HFA] 1 PUFF inhaler 1 - 2 puff inhalation Q4H PRN PRN (Reason: Asthma) RF: 0 albuterol sulfate [Ventolin HFA] 1 INHALER inhaler 1 - 2 puff inhalation Q4H PRN PRN (Reason: Asthma) RF: 0 levothyroxine 100 MCG tablet 100 mcg PO DAILY RF: 0 fluoxetine 20 MG capsule 20 mg PO DAILY RF: 0 omeprazole 20 mg capsule,delayed release(DR/EC) 20 mg PO DAILY RF: 0 diclofenac sodium 1 % gel 2 g TOPICAL 4X/DAY RF: 0 Discontinued methylprednisolone 4 mg tablets,dose pack 4 mg PO UD RF: 0 cefdinir 300 mg capsule 300 mg PO BID RF: 0 Referrals / Follow Up: Mir Quiroz MD [STAFF PHYSICIAN] - Within 3 Months Jose G Em DO [Primary Care Provider] - Within 1 Week Disposition Disposition (needs filled in before D/C Order can be placed): Home, Self Care Charges/Coding Visit Charges Inpatient E&M: 31740 Disch Hosp
--- NOTE | 2021-04-06 14:41 | CASEMGMT ---
RN SHAI received script for nebulizer. Patient states she has a portable nebulizer that she can use till new one received. Patient agreeable to have nebulizer drop shipped to her residence. Patient would like [facility]. Patient had no further questions or concerns at this time. Referral called and faxed to [facility] and arranged for nebulizer to be drop shipped to patient's home.
== END 2021-04-06 16:40 | disposition home or self-care (01) | DRG 141 ==
LOC: ED 23:17 → PCU 04-05 06:07
PROVIDERS: Admitting Provider Internal Medicine; Emergency Provider Emergency Medicine; PCP Student in an Organized Health Care Education/Training Program; Visit Provider Family Medicine
DX: J45.41 Moderate persistent asthma with (acute) exacerbation (principal); J96.01 Acute respiratory failure with hypoxia; I21.A1 Myocardial infarction type 2; K21.9 Gastro-esophageal reflux disease without esophagitis; K76.0 Fatty (change of) liver, not elsewhere classified; F41.9 Anxiety disorder, unspecified; E03.9 Hypothyroidism, unspecified; E83.42 Hypomagnesemia; B97.89 Other viral agents as the cause of diseases classified elsewhere; F32.A Depression, unspecified; Z79.899 Other long term (current) drug therapy; Z79.890 Hormone replacement therapy
CPT/HCPCS: 36415; 36600; 71045; 71275; 80048; 80053; 80061; 82803; 83036; 83735; 83880; 84439; 84443; 84481; 84484; 85025; 85610; 85730; 87426; 87633; 87635; 93005; 93306; 94640; 94760; 99251; 99285; J7050; Q9967; A4216; G0463; U0003; U0005

== ENCOUNTER 2022-02-11 20:52 | Emergency (ER) | payer MEDICAID, SELFPAY ==
[2022-02-11 20:53] VITALS: BP 133/75; PULSE 88; RESP 15; TEMP 37.1; O2SAT 98; BMI 20.5
[2022-02-11 22:02] VITALS: O2SAT 96
--- NOTE | 2022-02-11 22:31 | RAD_ITS ---
STUDY: X-RAY CHEST REASON FOR EXAM: Female, 56 years old. Chest pain TECHNIQUE: Single AP portable view of the chest. COMPARISON: April 04, 2021 FINDINGS: There is mild lower lung atelectasis. There is no demonstrated pleural abnormality. Normal size heart. Normal mediastinum and john. Normal visualized pulmonary arteries. Normal visualized aortic arch and descending thoracic aorta. Normal visualized thoracic spine. Normal visualized ribs, clavicles, and shoulders. There is no demonstrated abnormality of the visualized soft tissue structures of the upper abdomen. RAD/Chest 1 View (Portable) IMPRESSION: Mild lower lung atelectasis. Electronically Signed: Bartolo Desouza MD at 23:54 EST ,
--- NOTE | 2022-02-11 22:33 | EDS_ITS ---
HPI History of Present Illness Chief Complaint: Shortness of Breath Narrative Narrative: 56-year-old female presenting with dyspnea and chest pressure. She states she had influenza about 10 days ago. She saw her primary care physician about midway through this and was prescribed medications. She does not know what these were because she did not pick them up. She states that she slowly started to feel better. Initially she had some nausea and vomiting but this resolved as well about 2 days ago. She has decreased p.o. intake but has been able to eat and drink. No longer having fevers. She felt well enough to get up and go to the grocery store today and then she went shopping some more. She states he started to feel short of breath while she was walking. She decided to go home and when she got there she started having chest pressure. She states that this lasted for about 30 minutes to an hour. She states that she did a breathing treatment and felt some improvement. She is now complaining of headache. She does feel that she might be dehydrated. She denies a cardiac history. She does have a history of asthma. She does not feel as if she is wheezing. PFSH PFSH Medical History Anxiety Asthma Chest pain Depression Fibromyalgia GERD (gastroesophageal reflux disease) Hypothyroidism Kidney stones Migraines Non-smoker Home Medications fluoxetine 20 mg capsule 20 mg PO DAILY health maintenance 03/10/17 [History Last Taken Unknown] levothyroxine 100 mcg tablet 100 mcg PO DAILY thyroid 03/10/17 [History Last Taken 04/04/21] albuterol sulfate 90 mcg/actuation aerosol inhaler (ProAir HFA) 1 - 2 puff inhalation Q4H PRN PRN Asthma 03/13/17 [History Last Taken 03/20/17 07:00] albuterol sulfate 90 mcg/actuation aerosol inhaler (Ventolin HFA) 1 - 2 puff inhalation Q4H PRN PRN Asthma 03/13/17 [History Last Taken 03/20/17 07:00] albuterol sulfate 2.5 mg/3 mL (0.083 %) solution for nebulization 2.5 mg (3 mL) inhalation Q4H PRN PRN shortness of breath or wheezing #90 vials 04/04/21 [Rx Last Taken Unknown] ipratropium 0.5 mg-albuterol 3 mg (2.5 mg base)/3 mL nebulization soln 3 ml inhalation 4X/DAY PRN PRN shortness of breath or wheezing #180 mL 04/04/21 [Rx Last Taken Unknown] diclofenac sodium 1 % topical gel 2 g topical 4X/DAY pain 04/05/21 [History Last Taken Unknown] omeprazole 20 mg capsule,delayed release 20 mg PO DAILY reflux 04/05/21 [History Last Taken 04/04/21] aspirin 81 mg chewable tablet 81 mg PO BREAKFAST #30 tabs 04/06/21 [Rx Last Taken Unknown] prednisone 20 mg tablet 40 mg PO DAILY 7 days #14 tabs 04/06/21 [Rx Last Taken Unknown] Allergy/AdvReac Type Severity Reaction Status Date / Time latex Allergy Rash Verified 02/11/22 22:00 Penicillins Allergy Rash Verified 02/11/22 22:00 codeine AdvReac Rash Verified 02/11/22 22:00 Family History (Updated 04/05/21 @ 06:[address] Bhargavi Chiang MD) Father Sudden cardiac Mother No problems noted. Social History (Updated 04/05/21 @ 06:[address] Bhargavi Chiang MD) current occupational status: employed Smoking Status: Never smoker alcohol intake: current alcohol intake frequency: holidays/special occasions only substance use type: does not use ROS ROS ED Constitutional Constitutional ED: Denies chills or fever(s) Eyes Eyes: Denies change in vision or diplopia ENT ENT ED: Denies rhinorrhea or sore throat Cardiovascular Cardiovascular: Denies chest pain or palpitations Respiratory/Chest Respiratory/Chest: Reports cough, dyspnea and dyspnea on exertion Gastrointestinal Gastrointestinal: Reports nausea; Denies vomiting Genitourinary Genitourinary ED: Denies dysuria or hematuria Musculoskeletal Musculoskeletal: Denies arthralgias or back pain Integumentary Denies abscess Neurologic Neurologic: Reports headache(s); Denies paresthesias or weakness Psychiatric Psychiatric: Denies anxiety or depression EXAM Physical Exam Const Vital Signs: 02/11/22 20:53 02/11/22 22:02 02/11/22 23:55 Temperature 98.7 F Temperature Source Temporal Pulse Rate 88 Respiratory Rate 15 Respiratory Effort Normal Non-Labored Respiratory Depth Normal Respiratory Pattern Normal Blood Pressure 133/75 H Blood Pressure Mean 94 Pulse Ox 98 Oxygen Delivery Method Room Air Room Air Room Air Positive well nourished General Appearance ED: NAD; Negative for pallor HEENT Reports moist mucous membranes atraumatic Eyes PERRL and EOMs intact bilaterally Neck no lymphadenopathy and supple Resp normal respiratory effort and clear to auscultation bilaterally Auscultation: Negative for rales, rhonchi or wheezes Cardio regular rate and regular rhythm GI non-tender Neuro oriented x3 and CN's II-XII intact bilaterally Sensorium / Orientation: alert and oriented to person Psych mental status grossly normal Skin no wounds General Skin Exam: Negative for jaundice or pallor MDM MDM MDM Narrative Medical decision making narrative: Patient presenting with chest pressure. She relates she has no cardiac history. I did see in March she had been admitted for NSTEMI secondary to hypoxic respiratory failure secondary to viral illness. She had a normal echocardiogram at that time. She does not have any cardiac risk factors. No history of DVT/PE. Patient is PERC negative. Her current viral illness has been ongoing for about 10 days. She felt weak and tired today while shopping. She was concerned she was dehydrated. EKG on my interpretation shows normal sinus rhythm with a ventricular rate of 78 bpm without sign of ischemic change. Chest x-ray on my interpretation shows no acute cardiopulmonary process. Radiology interpreted this and agrees. CBC and BMP within normal limits. High- sensitivity troponin is 7. I feel at this point patient is stable for discharge home. Patient amenable to this. She will follow-up with her PCP to ensure resolution. Impression: 1. Chest pain 2. History of influenza A Lab Data Attestation: I reviewed the patient's lab results. Labs: Laboratory Results - last 24 hr 02/11/22 02/11/22 23:36 23:36 WBC 9.8 RBC 4.00 L Hgb 12.1 Hct 35.7 L MCV 89.3 MCH 30.3 MCHC 33.9 RDW Std Deviation 41.5 RDW Coeff of Jayme 12.6 Plt Count 424 MPV 8.8 Immature Gran % (Auto) 0.600 Neut % (Auto) 59.0 Lymph % (Auto) 21.6 [place] % (Auto) 10.3 H Eos % (Auto) 7.9 H Baso % (Auto) 0.6 Absolute Neuts (auto) 5.8 Absolute Lymphs (auto) 2.13 Nucleated RBC % 0 Sodium 141 Potassium 3.9 Chloride 106 Carbon Dioxide 29.0 Anion Gap 6 BUN 11 Creatinine 0.89 Estim Creat Clear Calc 62.09 Est GFR (MDRD) Af Amer 85 Est GFR (MDRD) Non-Af 70 BUN/Creatinine Ratio 12.4 Glucose 89 Calcium 9.4 Troponin I High Sens 7 Radiography Diagnostic Testing: Clinical Impression(s) from Imaging Studies Chest X-Ray 02/11/22 22:31 IMPRESSION: Mild lower lung atelectasis. Electronically Signed: Bartolo Desouza MD at 23:54 EST , Discharge Plan Triage Chief Complaint: Shortness of Breath ED Provider: Royal Feldman Dx/Rx/DC Orders Prescriptions: No Action albuterol sulfate [ProAir HFA] 1 PUFF inhaler 1 - 2 puff inhalation Q4H PRN PRN (Reason: Asthma) albuterol sulfate [Ventolin HFA] 1 INHALER inhaler 1 - 2 puff inhalation Q4H PRN PRN (Reason: Asthma) levothyroxine 100 MCG tablet 100 mcg PO DAILY Label Comments: take 1 tablet by mouth every morning ON AN EMPTY STOMACH fluoxetine 20 MG capsule 20 mg PO DAILY Label Comments: take 1 capsule by mouth once daily (ALONG WITH 40MG CAP TO EQUAL 60MGTOTAL) ipratropium-albuterol 0.5 mg-3 mg(2.5 mg base)/3 mL solution for nebulization 3 ml inhalation 4X/DAY PRN PRN (Reason: shortness of breath or wheezing) Qty: 180 0RF albuterol sulfate 2.5 mg /3 mL (0.083 %) solution for nebulization 2.5 mg inhalation Q4H PRN PRN (Reason: shortness of breath or wheezing) Qty: 90 0RF Rx Instructions: Use q4 hours and PRN for wheezing omeprazole 20 mg capsule,delayed release(DR/EC) 20 mg PO DAILY Label Comments: take 1 capsule by mouth once daily diclofenac sodium 1 % gel 2 g TOPICAL 4X/DAY Label Comments: apply 2 grams to affected area four times a day NEEDED FOR PAIN aspirin 81 mg Tablet,Chewable 81 mg PO BREAKFAST Qty: 30 0RF prednisone 20 mg tablet 40 mg PO DAILY 7 Days Qty: 14 0RF Primary Care Provider: Jose G Em Referrals: Jose G Em DO [Primary Care Provider] -
[2022-02-11] MEDS: 0.9% Normal Saline 1,000 ML 999 ML IV (23:37)
[2022-02-11] MEDS: Ketorolac 15 MG/ML Vial IV (23:37)
[2022-02-11 23:53] LABS: Absolute Lymphocyte Count 2.13 X10^3/uL (0.83-4.51); Absolute Neutrophil Count 5.8 X10^3/uL (2.0-7.7); Basophil# 0.06 X10^3/uL; Basophil% 0.6 % (0-1); Eosinophil# 0.78 X10^3/uL; Eosinophils% 7.9 % (0-5); Hematocrit 35.7 % (37-47); Hemoglobin 12.1 g/dL (12.0-15.0); Lymphocyte # 2.13 X10^3/ul (0.83-4.51); Lymphocyte % 21.6 % (19-41); Mean Corp Hgb Conc 33.9 g/dL (32-36); Mean Corpuscular Hgb 30.3 pg (27.0-32.0); Mean Corpuscular Volume 89.3 fL (81-99); Mean Platelet Vol. 8.8 fl (6.2-12.0); Monocyte# 1.01 X10^3/uL; Monocyte% 10.3 % (0-10); NRBC Flagged by Analyzer 0 % (0-5); Platelet Count 424 K/mm3 (150-450); RBC Distribution Width CV 12.6 % (11.6-14.6); RBC Distribution Width SD 41.5 fl (35.1-43.9); White Blood Count 9.8 K/mm3 (4.4-11.0)
[2022-02-12 00:19] LABS: Anion Gap 6 (5-15); BUN 11 mg/dL (7-18); BUN/Creat Ratio 12.4 RATIO (10-20); Calcium,Total 9.4 mg/dL (8.5-10.1); Chloride 106 mmol/L (98-107); Creatinine, Serum 0.89 mg/dL (0.55-1.02); EST Glomerular Filtration Rate 70 mL/min (>60); Est Glom Filt Rate - Afr Amer 85 mL/min (>60); Estimated Creatinine Clearance 62.09 ml/min; Glucose 89 mg/dL (74-106); Potassium 3.9 mmol/L (3.5-5.1); Sodium Level 141 mmol/L (136-145); Troponin-I HS 7 pg/mL (3.0-54.0)
[2022-02-12 00:28] VITALS: BP 110/75; PULSE 82; RESP 14; O2SAT 98
== END 2022-02-12 00:38 | disposition home or self-care (01) ==
PROVIDERS: Emergency Provider Student in an Organized Health Care Education/Training Program; PCP Student in an Organized Health Care Education/Training Program; Visit Provider Student in an Organized Health Care Education/Training Program
DX: R06.02 Shortness of breath (principal); R07.9 Chest pain, unspecified; E86.0 Dehydration; B34.9 Viral infection, unspecified; R51.9 Headache, unspecified; J45.909 Unspecified asthma, uncomplicated
CPT/HCPCS: 71045; 80048; 84484; 85025; 93005; 96361; 96374; 99285; J7030; A4216